=== PATIENT | female | born 1960 | race American Indian/Alaskan Native ===

== ENCOUNTER 2017-07-19 11:56 | Emergency (ER) | payer MEDICARE ==
[2017-07-19 12:10] VITALS: BP 126/69
[2017-07-19 12:46] LABS: Hematocrit 28.9 % (30.3-42.9); Hemoglobin 9.1 gm/dl (10.1-14.3); Mean Corpuscular HGB Conc 31 % (30-34); Mean Corpuscular Hemoglobin 28 pg (28-32); Mean Corpuscular Volume 89 fl (79-97); Platelet Count 149 K/mm3 (140-440); Red Blood Count 3.27 M/mm3 (3.65-5.03); Red Cell Distribution Width 15.1 % (13.2-15.2); White Blood Count 3.4 K/mm3 (4.5-11.0)
[2017-07-19 12:47] LABS: Calcium 8.9 mg/dL (8.4-10.2)
[2017-07-19 13:19] LABS: Bilirubin,Urine NEG (Negative); Blood,Urine NEG (Negative); Ketones,Urine NEG (Negative); Leukocyte Esterase,Urine NEG (Negative); Mucus,Urine FEW /HPF; Nitrite,Urine NEG (Negative); Protein,Urine <15 mg/dL mg/dL (Negative); Urobilinogen,Urine < 2.0 mg/dL (<2.0)
[2017-07-19 14:38] LABS: Basophils % (Manual) 0 % (0.0-1.8); Blastocytes % (Manual) 0 %; Eosinophils % (Manual) 0 % (0.0-4.3)
[2017-07-19 14:39] LABS: RBC Morphology Normal
[2017-07-19 14:40] LABS: Platelet Estimate Consistent w Auto
[2017-07-19 14:44] LABS: Diff Status Complete
== END 2017-07-19 16:14 | disposition left against medical advice (07) ==
LOC: ED 11:56
DX: R50.9 Fever, unspecified (principal); Z53.21 Procedure and treatment not carried out due to patient leaving prior to being seen by health care provider
CPT/HCPCS: 36415; 80048; 81001; 85007

== ENCOUNTER 2018-11-29 22:45 | Inpatient (IN) | payer MEDICARE ==
[2018-11-29] MEDS ORDERED: SOLU-Medrol IV ONE (22:59)
[2018-11-29] MEDS ORDERED: PROVENTIL IH ONE (22:59)
[2018-11-29] MEDS ORDERED: ATROVENT IH ONE (22:59)
[2018-11-29 23:51] LABS: Calcium 8.9 mg/dL (8.4-10.2)
[2018-11-30] MEDS ORDERED: ROCEPHIN/NS 2 GM/100 ML 2 GM/100 ML BAG IV ONE (00:04)
[2018-11-30] MEDS ORDERED: ZITHROMAX 500 MG in NACL 0.9% 250ML 250 ML IV ONE (00:04)
[2018-11-30] MEDS ORDERED: LASIX IV ONE (00:04)
[2018-11-30 00:27] LABS: Hematocrit 35.3 % (30.3-42.9); Hemoglobin 11.7 gm/dl (10.1-14.3); Mean Corpuscular HGB Conc 33 % (30-34); Mean Corpuscular Volume 98 fl (79-97); Red Blood Count 3.61 M/mm3 (3.65-5.03); Red Cell Distribution Width 14.5 % (13.2-15.2)
[2018-11-30 00:45] LABS: Platelet Count 78 K/mm3 (140-440)
--- NOTE | 2018-11-30 00:58 | XRay Report ---
PROCEDURE: XR CHEST 1V AP TECHNIQUE: Chest radiograph single view. HISTORY: Dyspnea COMPARISONS: 07/21/2016 . FINDINGS: Heart: The heart is enlarged. Mediastinum/Vessels: Normal. Lungs/Pleural space: There are bilateral perihilar infiltrates. There are small bilateral pleural ef fusions.. Bony thorax: No acute osseous abnormality. Life support devices: None. IMPRESSION: The heart is enlarged. There are bilateral perihilar infiltrates. There are small bilateral pleural effusions... This document is electronically signed by Alexey Santiago MD., November 30 2018 12:56:47 AM ET
--- NOTE | 2018-11-30 01:05 | Emergency Department Report ---
ED Shortness of Breath HPI - General Chief Complaint: Dyspnea/Respdistress Stated Complaint: CARRI Time Seen by Provider: 11/29/18 22:59 Source: patient, EMS Mode of arrival: Stretcher Limitations: No Limitations - History of Present Illness Initial Comments: Patient is a 58-year-old female who is presenting with some restorative distress. Patient states that she treated her cough and shortness of breath is progressively worsening for the last week to the pollen. Patient states that initially her sputum was clear however she did have some brown sputum today. Patient stated that tonight her respiratory distress worsened dramatically to the point where she could not breathe. O2 sat was in the mid 80s when she was picked up by EMS. Patient is denying any chest pain subjective fevers chills nausea vomiting. Patient has a past history of some renal insufficiency after renal transplant 6 years ago. Patient also states that she had surgery, valvular heart however she does not have much other details. Patient states she has hypertension but otherwise is generally in great health after her renal transplant. Patient's only medications currently that she is reported to me as his [id number] Mucinex and allergy medicines that she started taking earlier this week. - Related Data Home Medications Medication Instructions Recorded Confirmed Last Taken Darunavir [Prezista] 600 mg PO BID 12/16/14 12/16/14 Unknown Levothyroxine [Synthroid] 25 mcg PO QAM 12/16/14 12/16/14 Unknown Mycophenolate [Cellcept] 1,000 mg PO BID 12/16/14 12/16/14 Unknown Raltegravir Potassium [Isentress] 400 mg PO BID 12/16/14 12/16/14 Unknown Ritonavir [Norvir] 100 mg PO BID 12/16/14 12/16/14 Unknown amLODIPine [Norvasc] 5 mg PO DAILY 12/16/14 12/16/14 Unknown lamiVUDine [Epivir] 300 mg PO QDAY 12/16/14 12/16/14 Unknown oxyCODONE /ACETAMINOPHEN [Percocet 1 tab PO Q4HR PRN 12/16/14 12/16/14 Unknown 5/325 mg] Previous Rx's Medication Instructions Recorded Last Taken Type ALBUTEROL Inhaler (OR & NICU) 2 puff IH QID PRN #1 inhalation 12/17/14 Unknown Rx [ProAir HFA Inhaler] Fluticasone/Salmeterol [Advair 1 each IH BID #1 disk.w.dev 12/17/14 Unknown Rx Diskus 250-50 mcg] predniSONE [Prednisone] 20 mg PO DAILY 8 Days tablet 12/17/14 Unknown Rx Amoxicillin/K Clav Tab [Augmentin 1 tab PO BID #14 tablet 01/20/15 Unknown Rx 875MG TAB] methylPREDNISolone [Medrol Dose 1 dose PO DAILY #1 pack 01/20/15 Unknown Rx Nia] ALBUTEROL Inhaler (OR & NICU) 2 puff IH QID PRN #1 inhalation 11/19/15 Unknown Rx [ProAir HFA Inhaler] Azithromycin [Zithromax Z-NIA] 250 mg PO DAILY #6 tab 11/19/15 Unknown Rx guaiFENesin/CODEINE [Robitussin AC] 5 ml PO Q6H PRN #100 ml 11/19/15 Unknown Rx predniSONE [Deltasone] 20 mg PO BID #10 tab 11/19/15 Unknown Rx ALBUTEROL NEB's [Proventil 0.083% 2.5 mg IH TID PRN #25 dose 07/21/16 Unknown Rx NEBS] Azithromycin [Zithromax TAB] 500 mg PO QDAY #3 tablet 07/21/16 Unknown Rx Prednisone [predniSONE 10 mg 10 mg PO .TAPER #1 tab.ds.pk 07/21/16 Unknown Rx (6-Day Pack, 21 Tabs)] amLODIPine [Norvasc] 10 mg PO DAILY #30 tab 07/21/16 Unknown Rx Allergies Allergy/AdvReac Type Severity Reaction Status Date / Time levofloxacin [From Levaquin] AdvReac Swelling Verified 11/18/15 19:00 ED Review of Systems ROS: Stated complaint: CARRI Other details as noted in HPI Comment: All other systems reviewed and negative ED Past Medical Hx - Past Medical History Hx Hypertension: Yes (HTN) Hx Congestive Heart Failure: Yes Hx Diabetes: No Hx Renal Disease: Yes Hx Asthma: Yes Hx COPD: No Hx HIV: No Additional medical history: Kidney Transplant 2012 - Surgical History Hx Open Heart Surgery: Yes (HEART VALVE SURGERY 2010) Additional Surgical History: Kidney Transplant 2012. GRAFT RIGHT ARM. FISTULA LEFT ARM - Social History Smoking Status: Current Every Day Smoker Substance Use Type: None - Medications Home Medications: Home Medications Medication Instructions Recorded Confirmed Last Taken Type Darunavir [Prezista] 600 mg PO BID 12/16/14 12/16/14 Unknown History Levothyroxine [Synthroid] 25 mcg PO QAM 12/16/14 12/16/14 Unknown History Mycophenolate [Cellcept] 1,000 mg PO BID 12/16/14 12/16/14 Unknown History Raltegravir Potassium [Isentress] 400 mg PO BID 12/16/14 12/16/14 Unknown History Ritonavir [Norvir] 100 mg PO BID 12/16/14 12/16/14 Unknown History amLODIPine [Norvasc] 5 mg PO DAILY 12/16/14 12/16/14 Unknown History lamiVUDine [Epivir] 300 mg PO QDAY 12/16/14 12/16/14 Unknown History oxyCODONE /ACETAMINOPHEN [Percocet 1 tab PO Q4HR PRN 12/16/14 12/16/14 Unknown History 5/325 mg] ALBUTEROL Inhaler (OR & NICU) 2 puff IH QID PRN #1 inhalation 12/17/14 Unknown Rx [ProAir HFA Inhaler] Fluticasone/Salmeterol [Advair 1 each IH BID #1 disk.w.dev 12/17/14 Unknown Rx Diskus 250-50 mcg] predniSONE [Prednisone] 20 mg PO DAILY 8 Days tablet 12/17/14 Unknown Rx Amoxicillin/K Clav Tab [Augmentin 1 tab PO BID #14 tablet 01/20/15 Unknown Rx 875MG TAB] methylPREDNISolone [Medrol Dose 1 dose PO DAILY #1 pack 01/20/15 Unknown Rx Nia] ALBUTEROL Inhaler (OR & NICU) 2 puff IH QID PRN #1 inhalation 11/19/15 Unknown Rx [ProAir HFA Inhaler] Azithromycin [Zithromax Z-NIA] 250 mg PO DAILY #6 tab 11/19/15 Unknown Rx guaiFENesin/CODEINE [Robitussin AC] 5 ml PO Q6H PRN #100 ml 11/19/15 Unknown Rx predniSONE [Deltasone] 20 mg PO BID #10 tab 11/19/15 Unknown Rx ALBUTEROL NEB's [Proventil 0.083% 2.5 mg IH TID PRN #25 dose 07/21/16 Unknown Rx NEBS] Azithromycin [Zithromax TAB] 500 mg PO QDAY #3 tablet 07/21/16 Unknown Rx Prednisone [predniSONE 10 mg 10 mg PO .TAPER #1 tab.ds.pk 07/21/16 Unknown Rx (6-Day Pack, 21 Tabs)] amLODIPine [Norvasc] 10 mg PO DAILY #30 tab 07/21/16 Unknown Rx ED Physical Exam - General Limitations: No Limitations General appearance: alert, in distress - Head Head exam: Present: atraumatic, normocephalic - Eye Eye exam: Present: normal appearance, PERRL, EOMI - ENT ENT exam: Present: normal exam, mucous membranes moist - Neck Neck exam: Present: normal inspection - Respiratory Respiratory exam: Present: respiratory distress, wheezes, rales, rhonchi, other (tachypnea). Absent: normal lung sounds bilaterally - Cardiovascular Cardiovascular Exam: Present: regular rate, normal rhythm. Absent: systolic murmur, diastolic murmur, rubs, gallop - GI/Abdominal GI/Abdominal exam: Present: soft, normal bowel sounds. Absent: distended, tenderness, guarding, rebound, rigid - Extremities Exam Extremities exam: Present: normal inspection - Back Exam Back exam: Present: normal inspection - Neurological Exam Neurological exam: Present: alert, oriented X3 - Psychiatric Psychiatric exam: Present: normal affect, normal mood - Skin Skin exam: Present: warm, dry, intact, normal color. Absent: rash ED Course Vital Signs 11/29/18 11/29/18 11/29/18 22:54 23:00 23:15 Temperature 100.5 F H Pulse Rate 89 90 Pulse Rate [ Anterior Bilateral Throughout] Respiratory 23 30 H Rate Respiratory Rate [Anterior Bilateral Throughout] Blood Pressure 149/73 149/73 157/95 O2 Sat by Pulse 87 90 89 Oximetry 11/29/18 11/30/18 23:30 00:01 Temperature Pulse Rate 86 Pulse Rate [ 92 H Anterior Bilateral Throughout] Respiratory 28 H Rate Respiratory 18 Rate [Anterior Bilateral Throughout] Blood Pressure 146/82 O2 Sat by Pulse 90 Oximetry ED Medical Decision Making - Lab Data Result diagrams: 11/29/18 23:14 11/29/18 23:14 Lab Results 11/29/18 11/29/18 11/29/18 Range/Units 23:14 23:14 23:14 WBC 0.8 L* (4.5-11.0) K/mm3 RBC 3.61 L (3.65-5.03) M/mm3 Hgb 11.7 (10.1-14.3) gm/dl Hct 35.3 (30.3-42.9) % MCV 98 H (79-97) fl MCH 32 (28-32) pg MCHC 33 (30-34) % RDW 14.5 (13.2-15.2) % Plt Count 78 L (140-440) K/mm3 Lymph % (Auto) Curriculum Coordinator [place] % (Auto) Curriculum Coordinator Eos % (Auto) Curriculum Coordinator Baso % (Auto) Curriculum Coordinator Lymph # Curriculum Coordinator [place] # Curriculum Coordinator Eos # Curriculum Coordinator Baso # Curriculum Coordinator Seg Neutrophils % Curriculum Coordinator Seg Neutrophils # Curriculum Coordinator D-Dimer 6160.06 H (0-234) ng/mlDDU Sodium 133 L (137-145) mmol/L Potassium 3.5 L (3.6-5.0) mmol/L Chloride 98.4 (98-107) mmol/L Carbon Dioxide 22 (22-30) mmol/L Anion Gap 16 mmol/L BUN 21 H (7-17) mg/dL Creatinine 1.4 H (0.7-1.2) mg/dL Estimated GFR 47 ml/min BUN/Creatinine Ratio 15 % Glucose 144 H (65-100) mg/dL Calcium 8.9 (8.4-10.2) mg/dL Troponin T (0.00-0.029) ng/mL NT-Pro-B Natriuret Pep (0-900) pg/mL 11/29/18 11/29/18 Range/Units 23:14 23:14 WBC (4.5-11.0) K/mm3 RBC (3.65-5.03) M/mm3 Hgb (10.1-14.3) gm/dl Hct (30.3-42.9) % MCV (79-97) fl MCH (28-32) pg MCHC (30-34) % RDW (13.2-15.2) % Plt Count (140-440) K/mm3 Lymph % (Auto) [place] % (Auto) Eos % (Auto) Baso % (Auto) Lymph # [place] # Eos # Baso # Seg Neutrophils % Seg Neutrophils # D-Dimer (0-234) ng/mlDDU Sodium (137-145) mmol/L Potassium (3.6-5.0) mmol/L Chloride (98-107) mmol/L Carbon Dioxide (22-30) mmol/L Anion Gap mmol/L BUN (7-17) mg/dL Creatinine (0.7-1.2) mg/dL Estimated GFR ml/min BUN/Creatinine Ratio % Glucose (65-100) mg/dL Calcium (8.4-10.2) mg/dL Troponin T < 0.010 (0.00-0.029) ng/mL NT-Pro-B Natriuret Pep 5555 H (0-900) pg/mL - EKG Data -: EKG Interpreted by Me - EKG Data Interpretation: unchanged when compared t 11/30/18 01:05 EKG shows sinus rhythm rate of 87 with normal axis normal intervals. Patient with probable LVH. No ST segment elevations were seen. Time of interpretation is 2324 - Radiology Data Radiology results: image reviewed (patient with a borderline cardiomegaly with patchy bilateral infiltrates.) - Medical Decision Making Patient is a 58-year-old female who is presenting with respiratory distress. Patient received a small neb treatment in route and this was continued for another hour when she arrived. Patient's heart rate and tachypnea did improve while on the nebulizer treatment. Patient's chest x-ray is consistent with very large bilateral infiltrates that are patchy. Patient's BNP is elevated making or edema. Likely however the patient did have a low- grade temperature and leukopenia which also is supposed to an infectious process. Patient was given Lasix as well as placed on the sepsis protocol and g iven Rocephin and azithromycin. Fluids were held at this time secondary to the perez. Pulmonary edema. Again is unknown whether there is a superimposed pneumonia present as well. Patient will be taken for VQ scan to rule out PE as the patient's d-dimer was significantly elevated as well. Patient's renal function did not support CT scan. Patient's renal function is within normal limits for her. Patient has had a slight bump in her creatinine of the last several years and this is stable. Patient blood pressure remained within normal limits here in the emergency department. Patient will be admitted to the hospitalist service under Dr. Yap. A diagnosis of sepsis has not formally been made since no definitive infection has been identified at this time. The slight bump in the patient's temperature could be from a pneumonia however slight variations of patient's temperature could also be from pulmonary embolus. Critical Care Time: Yes (45) Critical care attestation.: If time is entered above; I have spent that time in minutes in the direct care of this critically ill patient, excluding procedure time. ED Disposition Clinical Impression: Hypoxia, Acute respiratory disease, CKD (chronic kidney disease) stage 3, GFR 30-59 ml/min, History of kidney transplant CHF (congestive heart failure) Qualifiers: Heart failure type: unspecified Heart failure chronicity: acute Qualified Code(s): I50.9 - Heart failure, unspecified Pneumonia Qualifiers: Pneumonia type: due to unspecified organism Laterality: unspecified laterality Lung location: unspecified part of lung Qualified Code(s): J18.9 - Pneumonia, unspecified organism Disposition: DC-09 OP ADMIT IP TO THIS HOSP Is pt being admited?: Yes Does the pt Need Aspirin: No Condition: Stable Instructions: Bacterial Pneumonia (ED)
[2018-11-30] MEDS ORDERED: TYLENOL PO PRN (01:50)
[2018-11-30] MEDS ORDERED: ZOFRAN IV PRN (01:50)
[2018-11-30] MEDS ORDERED: SODIUM CHLORIDE FLUSH SYRINGE 10 ML IV PRN (01:50)
--- NOTE | 2018-11-30 01:56 | History and Physical Report ---
History of Present Illness Date of examination: 11/30/18 History of present illness: This 58-year-old woman with a history of hypertension, chronic kidney disease, status post renal transplant, asthma comes emergency room complaining of shortness of breath that started yesterday. She states all week she wasn't feeling well, she thought her asthma and allergy was acting up. She complains of cough productive of brown phlegm, fever, no chills Review of systems Constitutional: no weight loss, chills, fever Ears, eyes, nose, mouth and throat: no nasal congestion, no nasal discharge, no sinus pressure, no vision change, no red eye. Neck: No neck pain or rigidity. Cardiovascular: no palpitations, chest pain Respiratory: + cough, shortness of breath Gastrointestinal: no hematochezia, abdominal pain Genitourinary : no frequency , no hematuria Musculoskeletal: no joint swelling or muscle ache Integumentary: no rash, no pruritis Neurological: no parathesias, no focal weakness Endocrine: no cold or heat intolerance, no polyuria or polydipsia Hematologic/Lymphatic: no easy bruising, no easy bleeding, no gland swelling Allergic/Immunologic: no urticaria, no angioedema. PAST MEDICAL HISTORY:hypertension, chronic kidney disease, status post renal transplant, asthma PAST SURGICAL HISTORY: Renal transplant SOCIAL HISTORY: Denies alcohol, drugs, smokes 5 cigarettes a day FAMILY HISTORY: Hypertension Medications and Allergies Allergies Allergy/AdvReac Type Severity Reaction Status Date / Time levofloxacin [From Levaquin] AdvReac Swelling Verified 11/18/15 19:00 Home Medications Medication Instructions Recorded Confirmed Last Taken Type Darunavir [Prezista] 600 mg PO BID 12/16/14 11/30/18 1 Day Ago History ~11/29/18 Levothyroxine [Synthroid] 25 mcg PO QAM 12/16/14 11/30/18 1 Day Ago History ~11/29/18 Mycophenolate [Cellcept] 1,000 mg PO BID 12/16/14 11/30/18 1 Day Ago History ~11/29/18 Raltegravir Potassium [Isentress] 400 mg PO BID 12/16/14 11/30/18 1 Day Ago History ~11/29/18 Ritonavir [Norvir] 100 mg PO BID 12/16/14 11/30/18 1 Day Ago History ~11/29/18 amLODIPine [Norvasc] 5 mg PO DAILY 12/16/14 11/30/18 Unknown History lamiVUDine [Epivir] 300 mg PO QDAY 12/16/14 11/30/18 2 Days Ago History ~11/28/18 oxyCODONE /ACETAMINOPHEN [Percocet 1 tab PO Q4HR PRN 12/16/14 11/30/18 Unknown History 5/325 mg] ALBUTEROL Inhaler (OR & NICU) 2 puff IH QID PRN #1 inhalation 12/17/14 11/30/18 Unknown Rx [ProAir HFA Inhaler] Fluticasone/Salmeterol [Advair 1 each IH BID #1 disk.w.dev 12/17/14 11/30/18 1 Day Ago Rx Diskus 250-50 mcg] ~11/29/18 predniSONE [Prednisone] 20 mg PO DAILY 8 Days tablet 12/17/14 11/30/18 Unknown Rx Amoxicillin/K Clav Tab [Augmentin 1 tab PO BID #14 tablet 01/20/15 11/30/18 Unknown Rx 875MG TAB] methylPREDNISolone [Medrol Dose 1 dose PO DAILY #1 pack 01/20/15 11/30/18 Unknown Rx Nia] ALBUTEROL Inhaler (OR & NICU) 2 puff IH QID PRN #1 inhalation 11/19/15 11/30/18 Unknown Rx [ProAir HFA Inhaler] Azithromycin [Zithromax Z-NIA] 250 mg PO DAILY #6 tab 11/19/15 11/30/18 Unknown Rx guaiFENesin/CODEINE [Robitussin AC] 5 ml PO Q6H PRN #100 ml 11/19/15 11/30/18 Unknown Rx predniSONE [Deltasone] 20 mg PO BID #10 tab 11/19/15 11/30/18 Unknown Rx ALBUTEROL NEB's [Proventil 0.083% 2.5 mg IH TID PRN #25 dose 07/21/16 11/30/18 Unknown Rx NEBS] Azithromycin [Zithromax TAB] 500 mg PO QDAY #3 tablet 07/21/16 11/30/18 Unknown Rx Prednisone [predniSONE 10 mg 10 mg PO .TAPER #1 tab.ds.pk 07/21/16 11/30/18 Unknown Rx (6-Day Pack, 21 Tabs)] amLODIPine [Norvasc] 10 mg PO DAILY #30 tab 07/21/16 11/30/18 1 Day Ago Rx ~11/29/18 Tacrolimus [Prograf] 0.5 mg PO BID 11/30/18 11/30/18 1 Day Ago History ~11/29/18 Tacrolimus [Prograf] 0.5 mg PO Q12H 11/30/18 11/30/18 Unknown History Active Meds: Active Medications Acetaminophen (Tylenol) 650 mg PO Q4H PRN PRN Reason: Pain MILD(1-3)/Fever >100.5/MACHUCA Albuterol/Ipratropium (Duoneb *Not For Prn Use*) 1 ampul IH Q6HRT RASHEEDA Vancomycin HCl (Vancomycin/Ns 1 Gm/250 Ml) 1 gm in 250 mls @ 167.007 mls/hr IV ONCE ONE; Protocol Stop: 11/30/18 03:17 Ondansetron HCl (Zofran) 4 mg IV Q8H PRN PRN Reason: Nausea And Vomiting Sodium Chloride (Sodium Chloride Flush Syringe 10 Ml) 10 ml IV BID RASHEEDA Sodium Chloride (Sodium Chloride Flush Syringe 10 Ml) 10 ml IV PRN PRN PRN Reason: LINE FLUSH Exam - Physical Exam Narrative exam: General Apperance: The patient lying in bed, mild respiratory distress HEENT: Normocephalic, atraumatic. Pupils equally round and reactive to light, EOMI, no sclericterus or JVD or thyromegaly or nodule. , no carotid bruit, mucous membranes moist, no exudate or erythema Heart: S1-S2, regular is rhythm Lungs: Crackles bilaterally, breathing comfortable Abdomen: Positive bowel sounds, soft, nontender, nondistended, no organomegaly Extremities: No edema cyanosis clubbing Skin: no rash, nodule, warm and dry Neuro: cranial nerves 2-12 intact, speech is fluent, motor/sensory intact - Constitutional Vitals: Temp Pulse Resp BP Pulse Ox 100.5 F H 96 H 16 140/81 90 11/29/18 23:00 11/30/18 01:06 11/30/18 01:06 11/30/18 01:00 11/30/18 01:00 Results - Labs CBC & Chem 7: 12/02/18 06:01 12/02/18 06:01 Labs: Abnormal lab results 11/29/18 11/29/18 11/29/18 Range/Units 23:14 23:14 23:14 WBC 0.8 L* (4.5-11.0) K/mm3 RBC 3.61 L (3.65-5.03) M/mm3 MCV 98 H (79-97) fl Plt Count 78 L (140-440) K/mm3 D-Dimer 6160.06 H (0-234) ng/mlDDU Sodium 133 L (137-145) mmol/L Potassium 3.5 L (3.6-5.0) mmol/L BUN 21 H (7-17) mg/dL Creatinine 1.4 H (0.7-1.2) mg/dL Glucose 144 H (65-100) mg/dL Lactic Acid (0.7-2.0) mmol/L NT-Pro-B Natriuret Pep (0-900) pg/mL 11/29/18 11/30/18 Range/Units 23:14 01:08 WBC (4.5-11.0) K/mm3 RBC (3.65-5.03) M/mm3 MCV (79-97) fl Plt Count (140-440) K/mm3 D-Dimer (0-234) ng/mlDDU Sodium (137-145) mmol/L Potassium (3.6-5.0) mmol/L BUN (7-17) mg/dL Creatinine (0.7-1.2) mg/dL Glucose (65-100) mg/dL Lactic Acid 0.60 L (0.7-2.0) mmol/L NT-Pro-B Natriuret Pep 5555 H (0-900) pg/mL - Imaging and Cardiology Chest x-ray: report reviewed Assessment and Plan Assessment Acute respiratory failure, hypoxia Multifocal pneumonia Leukopenia, thrombocytopenia Hypertension Chronic kidney disease, status post renal transplant Asthma Plan Admit to medicine Start Zosyn, given a dose of Vanco,obatain abg, start BiPAP start steroids, nebulizer treatments VQ scan is pending, consult pulmonary DVT prophylaxis Follow-up medication reconciliation
[2018-11-30] MEDS ORDERED: VANCOMYCIN/NS 1 GM/250 ML 1 GM/250 ML BAG IV ONE (02:15)
[2018-11-30] MEDS: DUONEB *Not for PRN Use IH SCH ×5 (02:15→21:50)
[2018-11-30 02:32] LABS: Anisocytosis 1+; Basophils % (Manual) 0 % (0.0-1.8); Platelet Estimate Consistent w Auto; Total Cells Counted 50
--- NOTE | 2018-11-30 03:18 | Nuclear Medicine Report ---
PROCEDURE: NM LUNG SCAN PERF/VENT TECHNIQUE: Perfusion images obtained with 3.86 mCi of technetium MAA. Ventilation images obtained with 17.32 mCi of seen on 133. HISTORY: resp distress with elevated ddimer COMPARISONS: Correlation is made with the prior plain film radiograph from November 29 FINDINGS: There is no evidence of segmental or subsegmental mismatch perfusion defects. IMPRESSION: Low probability for pulmonary emboli.. This document is electronically signed by Bc Campos MD., November 30 2018 03:16:34 AM ET
[2018-11-30] MEDS: ZOSYN/NS 3.375GM/50ML 3.375 GM/50 ML BAG IV SCH ×2 (04:58→16:33)
[2018-11-30] MEDS: SOLU-Medrol IV SCH ×3 (06:39→22:14)
[2018-11-30 06:48] LABS: Bacteria,Urine 2+ /HPF (Negative); Bilirubin,Urine NEG (Negative); Blood,Urine NEG (Negative); Color,Urine Straw (Yellow); Mucus,Urine FEW /HPF; Protein,Urine <15 mg/dL mg/dL (Negative); Urobilinogen,Urine < 2.0 mg/dL (<2.0); WBC,Urine < 1.0 /HPF (0.0-6.0)
[2018-11-30] MEDS: SODIUM CHLORIDE FLUSH SYRINGE 10 ML IV SCH ×2 (09:41→22:14)
[2018-11-30] MEDS ORDERED: PROVENTIL IH PRN (11:38)
[2018-11-30] MEDS ORDERED: LAMIVUDINE 300 MG PO SCH (11:45)
[2018-11-30] MEDS ORDERED: PREZISTA PO SCH (12:00)
--- NOTE | 2018-11-30 13:21 | Consultation ---
History of Present Illness - Reason for Consult Consult date: 11/30/18 PNA Requesting physician: TAMY DOYLE - History of Present Illness This patient is a 58-year old woman with a history of hypertension, chronic kidney disease status post renal transplant in 2012, and asthma that presented in the ED on 11/30/18 with complaints of SOB and productive cough of brown phelgm and subjective fever since yesterday. On admission WBC 0.8, Creatinine 1.4, Temperature 100.5, HR 95 , BP 149/73. U/A was not consistent with a UTI. Chest xray shows bilateral perihilar infiltrates and small bilateral pleural effusions.. Blood cultures were drawn and are pending. Patient states that she was diagnosed with HIV 20 years ago[address] Dr[address] Hutchison in [place] and is currently taking Triumeq and states her VL is undetectable. She smokes tobacco but denies alcohol or illegal drug use. Review of Systems: General: +fever chills, no nightsweats, unintentional weight change, or change in appetite Cutaneous: no rash, pruritus Head: no headaches or injury Eyes: no changes in vision, eye pain, double vision Ears: no ear pain, ear discharge, ringing or hearing loss Nose: no nose bleeding, stuffiness Mouth & throat: no bleeding gums, no horseness, no dental problems, or swollen glands Neck: no pain, node enlargement/lumps, tyroid enlargement or tenderness Respiratory: + cough + sputum, denies pleuritic chest pain Cardiovascular: no chest pain, leg edema, cyanosis, CHOWDARY, orthopnea Musculoskeletal: no decreased joint motion, bone or joint pain, joint swelling, + generalized weakness Gastrointestinal: no nausea, vomiting, hematemesis, diarrhea, constipation, melena, Genitourinary/Reproductive: no frequent urination, no dysuria, hematuria, incontinence Neurogical: no seizures, no headaches, no weakness, no paresthesias, no loss of speech or vision Psychiatric: stable mood; no excessive anxiety, sadness or moodiness Medications and Allergies Allergies Allergy/AdvReac Type Severity Reaction Status Date / Time levofloxacin [From Levaquin] AdvReac Swelling Verified 11/18/15 19:00 Home Medications Medication Instructions Recorded Confirmed Last Taken Type Darunavir [Prezista] 600 mg PO BID 12/16/14 11/30/18 1 Day Ago History ~11/29/18 Levothyroxine [Synthroid] 25 mcg PO QAM 12/16/14 11/30/18 1 Day Ago History ~11/29/18 Mycophenolate [Cellcept] 1,000 mg PO BID 12/16/14 11/30/18 1 Day Ago History ~11/29/18 Raltegravir Potassium [Isentress] 400 mg PO BID 12/16/14 11/30/18 1 Day Ago History ~11/29/18 Ritonavir [Norvir] 100 mg PO BID 12/16/14 11/30/18 1 Day Ago History ~11/29/18 amLODIPine [Norvasc] 5 mg PO DAILY 12/16/14 11/30/18 Unknown History lamiVUDine [Epivir] 300 mg PO QDAY 12/16/14 11/30/18 2 Days Ago History ~11/28/18 oxyCODONE /ACETAMINOPHEN [Percocet 1 tab PO Q4HR PRN 12/16/14 11/30/18 Unknown History 5/325 mg] ALBUTEROL Inhaler (OR & NICU) 2 puff IH QID PRN #1 inhalation 12/17/14 11/30/18 Unknown Rx [ProAir HFA Inhaler] Fluticasone/Salmeterol [Advair 1 each IH BID #1 disk.w.dev 12/17/14 11/30/18 1 Day Ago Rx Diskus 250-50 mcg] ~11/29/18 predniSONE [Prednisone] 20 mg PO DAILY 8 Days tablet 12/17/14 11/30/18 Unknown Rx Amoxicillin/K Clav Tab [Augmentin 1 tab PO BID #14 tablet 01/20/15 11/30/18 Unknown Rx 875MG TAB] methylPREDNISolone [Medrol Dose 1 dose PO DAILY #1 pack 01/20/15 11/30/18 Unknown Rx Ubaldo] ALBUTEROL Inhaler (OR & NICU) 2 puff IH QID PRN #1 inhalation 11/19/15 11/30/18 Unknown Rx [ProAir HFA Inhaler] Azithromycin [Zithromax Z-UBALDO] 250 mg PO DAILY #6 tab 11/19/15 11/30/18 Unknown Rx guaiFENesin/CODEINE [Robitussin AC] 5 ml PO Q6H PRN #100 ml 11/19/15 11/30/18 Unknown Rx predniSONE [Deltasone] 20 mg PO BID #10 tab 11/19/15 11/30/18 Unknown Rx ALBUTEROL NEB's [Proventil 0.083% 2.5 mg IH TID PRN #25 dose 07/21/16 11/30/18 Unknown Rx NEBS] Azithromycin [Zithromax TAB] 500 mg PO QDAY #3 tablet 07/21/16 11/30/18 Unknown Rx Prednisone [predniSONE 10 mg 10 mg PO .TAPER #1 tab.ds.pk 07/21/16 11/30/18 Unknown Rx (6-Day Pack, 21 Tabs)] amLODIPine [Norvasc] 10 mg PO DAILY #30 tab 07/21/16 11/30/18 1 Day Ago Rx ~11/29/18 Active Meds: Active Medications Acetaminophen (Tylenol) 650 mg PO Q4H PRN PRN Reason: Pain MILD(1-3)/Fever >100.5/MACHUCA Albuterol (Proventil) 2.5 mg IH Q4HRT PRN PRN Reason: Shortness Of Breath Albuterol/Ipratropium (Duoneb *Not For Prn Use*) 1 ampul IH Q6HRT [facility] Last Admin: 11/30/18 08:24 Dose: Not Given Documented by: Arformoterol Tartrate (Brovana Nebu) 15 mcg IH Q12HRT [facility] Budesonide (Pulmicort) 0.5 mg IH Q12HRT [facility] Piperacillin Sod/Tazobactam Sod (Zosyn/Ns 3.375gm/50ml) 3.375 gm in 50 mls @ 100 mls/hr IV Q8H [facility] Last Infusion: 11/30/18 05:28 Dose: Infused Documented by: Lamivudine (Epivir) 300 mg PO QDAY RASHE[facility] Levothyroxine Sodium (Synthroid) 25 mcg PO 0600 [facility] Methylprednisolone Sodium Succinate (Solu-Medrol) 60 mg IV Q8HR [facility] Last Admin: 11/30/18 06:39 Dose: 60 mg Documented by: Mycophenolate Mofetil (Cellcept) 1,000 mg PO BID [facility] Ondansetron HCl (Zofran) 4 mg IV Q8H PRN PRN Reason: Nausea And Vomiting Pneumococcal Polyvalent Vaccine (Pneumovax 23) 0.5 ml IM .ONCE ONE Stop: 04/09/19 12:01 Raltegravir (Isentress) 400 mg PO BID [facility] Ritonavir (Norvir) 100 mg PO BID RAS[facility] Sodium Chloride (Sodium Chloride Flush Syringe 10 Ml) 10 ml IV BID [facility] Last Admin: 11/30/18 09:41 Dose: 10 ml Documented by: Sodium Chloride (Sodium Chloride Flush Syringe 10 Ml) 10 ml IV PRN PRN PRN Reason: LINE FLUSH Physical Examination - Physical Exam Narrative exam: Constitutional: Alert, cooperative. No acute distress Head, Ears, Nose: Normocephalic, atraumatic. External ears, nose normal Eyes: Conjunctivae/corneas clear. No icterus. No ptosis. Neck: Supple, no meningeal signs Oral: dentition fair, no thrush Cardiovascular: S1, S2 normal. Respiratory: Good air entry, Bilateral Rhonci, + productive cough, clear sputum GI: Soft, non-tender; bowel sounds normal. No peritoneal signs Musculoskeletal: No pedal edema, no cyanosis. Skin: No rash or abscess. Hem/Lymphatic: No palpable cervical or supraclavicular nodes. No lymphangitis Psych: Mood ok. Affect normal Neurological: Awake, alert, oriented. - Constitutional Vitals: Vital Signs Temp Pulse Resp BP Pulse Ox 98.4 F 83 20 133/77 100 11/30/18 10:54 11/30/18 10:51 11/30/18 10:51 11/30/18 10:51 11/30/18 10:51 Temperature -Last 24 Hours Temperature 98.4 F Temperature 98.1 F Temperature 100.5 F Results - Labs CBC & Chem 7: 11/29/18 23:14 11/29/18 23:14 Labs: Abnormal lab results 11/29/18 11/29/18 11/29/18 Range/Units 23:14 23:14 23:14 WBC 0.8 L* (4.5-11.0) K/mm3 RBC 3.61 L (3.65-5.03) M/mm3 MCV 98 H (79-97) fl Plt Count 78 L (140-440) K/mm3 Seg Neuts % (Manual) 22.0 L (40.0-70.0) % Lymphocytes % (Manual) 68.0 H (13.4-35.0) % Monocytes % (Manual) 8.0 H (0.0-7.3) % Seg Neutrophils # Man 0.2 L (1.8-7.7) K/mm3 Lymphocytes # (Manual) 0.5 L (1.2-5.4) K/mm3 D-Dimer 6160.06 H (0-234) ng/mlDDU POC ABG pH (7.35-7.45) POC ABG pCO2 (35-45) Sodium 133 L (137-145) mmol/L Potassium 3.5 L (3.6-5.0) mmol/L BUN 21 H (7-17) mg/dL Creatinine 1.4 H (0.7-1.2) mg/dL Glucose 144 H (65-100) mg/dL Lactic Acid (0.7-2.0) mmol/L NT-Pro-B Natriuret Pep (0-900) pg/mL 11/29/18 11/30/18 11/30/18 Range/Units 23:14 01:08 04:37 WBC (4.5-11.0) K/mm3 RBC (3.65-5.03) M/mm3 MCV (79-97) fl Plt Count (140-440) K/mm3 Seg Neuts % (Manual) (40.0-70.0) % Lymphocytes % (Manual) (13.4-35.0) % Monocytes % (Manual) (0.0-7.3) % Seg Neutrophils # Man (1.8-7.7) K/mm3 Lymphocytes # (Manual) (1.2-5.4) K/mm3 D-Dimer (0-234) ng/mlDDU POC ABG pH (7.35-7.45) POC ABG pCO2 (35-45) Sodium (137-145) mmol/L Potassium (3.6-5.0) mmol/L BUN (7-17) mg/dL Creatinine (0.7-1.2) mg/dL Glucose (65-100) mg/dL Lactic Acid 0.60 L 0.60 L (0.7-2.0) mmol/L NT-Pro-B Natriuret Pep 5555 H (0-900) pg/mL 11/30/18 Range/Units 04:53 WBC (4.5-11.0) K/mm3 RBC (3.65-5.03) M/mm3 MCV (79-97) fl Plt Count (140-440) K/mm3 Seg Neuts % (Manual) (40.0-70.0) % Lymphocytes % (Manual) (13.4-35.0) % Monocytes % (Manual) (0.0-7.3) % Seg Neutrophils # Man (1.8-7.7) K/mm3 Lymphocytes # (Manual) (1.2-5.4) K/mm3 D-Dimer (0-234) ng/mlDDU POC ABG pH 7.307 L (7.35-7.45) POC ABG pCO2 45.9 H (35-45) Sodium (137-145) mmol/L Potassium (3.6-5.0) mmol/L BUN (7-17) mg/dL Creatinine (0.7-1.2) mg/dL Glucose (65-100) mg/dL Lactic Acid (0.7-2.0) mmol/L NT-Pro-B Natriuret Pep (0-900) pg/mL - Imaging and Cardiology Chest x-ray: report reviewed (There are bilateral perihilar infiltrates. There are small bilateral pleural effusions... ), other (Pulmonary Perfusion Imaging: Low probability for pulmonary emboli) Assessment and Plan Cultures: 11/30/2018 Blood: in progress A/P: 58-year oled woman with a history of hypertenison, chronic kidney disease status post renal transplant in 2012.and asthma that presented in the ED on 11/30/18 with complaints of SOB and productive cough of brown phelgm and subjective fever since yesterday. Now admitted with: 1. Multifocal Pneumonia: Chest xray shows bilateral perihilar infiltrates and small bilateral plueral effusions. Pulmonary perfusion imaging shows low probability for pulmonary emboli. Currently being treated with Azithromycin and Zosyn. 2. Acute respiratory failure with hypoxia: likely due to multifocal pneumonia. 3. HIV: diagnosed 20 years ago. States VL is undetectable, Currently taking Triumeg at home. Non formulary. Started Dolutegravir and Abacavir. 3. Leukopenia: unclear etiology. ? cellcept? 4. CKD: s/p Renal Transplant: Renal transplant in 2012. 5. Thrombocytopenia: 6. [employer] Abuse: counseled on smoking cessation Plan: -f/u blood cultures -Discontinue Zosyn -continue Azithromycin 500mg IV every 24 hours -Start Ceftriaxone 2 gm IV every 24 hours -order sputum culture -CT Chest w/o contrast ordered -order CMV DNA, QN PCR, Legionella Antigen, EIA , Serum Aspergillus, Serum 1, 3 Beta d glucan Steptococcus Pneumoniae urinary antigen,HIV RNA, Lymphocyte subset panel 2 Start Dolutegravir and Abacavir - Triumeg is non formulary d/w Dr. Chloé Lan, [facility] M: [phone] O:[phone]
[2018-11-30] MEDS ORDERED: NORVIR PO SCH (14:00)
[2018-11-30] MEDS ORDERED: ISENTRESS PO SCH (14:00)
[2018-11-30] MEDS ORDERED: EPIVIR PO SCH ×2 (14:00→16:00)
[2018-11-30] MEDS ORDERED: ZIAGEN PO SCH (16:00)
--- NOTE | 2018-11-30 16:40 | Cat Scan Report ---
PROCEDURE: CT CHEST WO CON TECHNIQUE: Axial images obtained chest without intravenous contrast. Sagittal and coronal reformatte d images. HISTORY: pneumonia, HIV and renal transplant COMPARISONS: Chest x-ray November 29, 2018 FINDINGS: Atherosclerotic calcification of the aorta. No aneurysm. Marked dilatation of the pulmonary trunk and main pulmonary arteries. Pulmonary trunk measures 4.8 cm. Cardiomegaly. Status post median sternotomy. Status post CABG. No axillary or mediastinal adenopathy Granulomatous calcifications are noted right hilum Lungs demonstrate hyperlucent areas compatible with changes of centrilobular emphysema Upper lobes demonstrate a combination of groundglass opacity and consolidation. Consolidation is most prominent in the perihilar regions left greater than right. There is mild septal thickening. Both lo wer lobes demonstrate groundglass opacity. There is groundglass opacity right middle lobe. There is c onsolidation left lower lobe as well as lingula. No pneumothorax No sizable effusion Upper abdomen demonstrates no free air. No free fluid. Focal calcification liver. Atrophy of jackson k idneys. Opacity in the gallbladder likely representing cholelithiasis. No acute bony abnormality IMPRESSION: Bilateral areas of groundglass opacity and consolidation. Differential includes edema and/or pneumoni a. Atypical pneumonia including pneumocystis not excluded. Changes of centrilobular emphysema Cardiomegaly Marked enlargement of the pulmonary arteries which can be seen in the setting of pulmonary arterial h ypertension Old granulomatous disease Atrophy of the jackson kidneys Additional nonemergent findings as above. This document is electronically signed by Bola Mercado MD., November 30 2018 04:38:46 PM ET
[2018-11-30] MEDS: CELLCEPT PO SCH ×2 (17:10→22:14)
--- NOTE | 2018-11-30 17:10 | Consultation ---
History of Present Illness Consult date: 11/30/18 Reason for consult: dyspnea, asthma, COPD History of present illness: PULMONARY AND CRITICAL CARE CONSULTATION THANK YOU FOR ASKING US TO PARTICIPATE IN THE CARE OF THIS PATIENT. This 71-year-old woman with a history of hypertension, chronic kidney disease, status post renal transplant, asthma comes emergency room complaining of shortness of breath that started yesterday. She states all week she wasn't feeling well, she thought her asthma and allergy was acting up. She complains of cough productive of brown phlegm, fever, no chills Patient has history of smoking 1 pack x 3 days for 15 years.Patient also has history of asthma. Patient allergic to levofloxacin. Unable to obtain furthur history. Patient presently on 2 litres O2. O2 saturation 94%. Medications and Allergies Allergies Allergy/AdvReac Type Severity Reaction Status Date / Time levofloxacin [From Levaquin] AdvReac Swelling Verified 11/18/15 19:00 Home Medications Medication Instructions Recorded Confirmed Last Taken Type Darunavir [Prezista] 600 mg PO BID 12/16/14 11/30/18 1 Day Ago History ~11/29/18 Levothyroxine [Synthroid] 25 mcg PO QAM 12/16/14 11/30/18 1 Day Ago History ~11/29/18 Mycophenolate [Cellcept] 1,000 mg PO BID 12/16/14 11/30/18 1 Day Ago History ~11/29/18 Raltegravir Potassium [Isentress] 400 mg PO BID 12/16/14 11/30/18 1 Day Ago History ~11/29/18 Ritonavir [Norvir] 100 mg PO BID 12/16/14 11/30/18 1 Day Ago History ~11/29/18 amLODIPine [Norvasc] 5 mg PO DAILY 12/16/14 11/30/18 Unknown History lamiVUDine [Epivir] 300 mg PO QDAY 12/16/14 11/30/18 2 Days Ago History ~11/28/18 oxyCODONE /ACETAMINOPHEN [Percocet 1 tab PO Q4HR PRN 12/16/14 11/30/18 Unknown History 5/325 mg] ALBUTEROL Inhaler (OR & NICU) 2 puff IH QID PRN #1 inhalation 12/17/14 11/30/18 Unknown Rx [ProAir HFA Inhaler] Fluticasone/Salmeterol [Advair 1 each IH BID #1 disk.w.dev 12/17/14 11/30/18 1 Day Ago Rx Diskus 250-50 mcg] ~11/29/18 predniSONE [Prednisone] 20 mg PO DAILY 8 Days tablet 12/17/14 11/30/18 Unknown Rx Amoxicillin/K Clav Tab [Augmentin 1 tab PO BID #14 tablet 01/20/15 11/30/18 Unknown Rx 875MG TAB] methylPREDNISolone [Medrol Dose 1 dose PO DAILY #1 pack 01/20/15 11/30/18 Unknown Rx Nia] ALBUTEROL Inhaler (OR & NICU) 2 puff IH QID PRN #1 inhalation 11/19/15 11/30/18 Unknown Rx [ProAir HFA Inhaler] Azithromycin [Zithromax Z-NIA] 250 mg PO DAILY #6 tab 11/19/15 11/30/18 Unknown Rx guaiFENesin/CODEINE [Robitussin AC] 5 ml PO Q6H PRN #100 ml 11/19/15 11/30/18 Unknown Rx predniSONE [Deltasone] 20 mg PO BID #10 tab 11/19/15 11/30/18 Unknown Rx ALBUTEROL NEB's [Proventil 0.083% 2.5 mg IH TID PRN #25 dose 07/21/16 11/30/18 Unknown Rx NEBS] Azithromycin [Zithromax TAB] 500 mg PO QDAY #3 tablet 07/21/16 11/30/18 Unknown Rx Prednisone [predniSONE 10 mg 10 mg PO .TAPER #1 tab.ds.pk 07/21/16 11/30/18 Unknown Rx (6-Day Pack, 21 Tabs)] amLODIPine [Norvasc] 10 mg PO DAILY #30 tab 07/21/16 11/30/18 1 Day Ago Rx ~11/29/18 Tacrolimus [Prograf] 0.5 mg PO BID 11/30/18 11/30/18 1 Day Ago History ~11/29/18 Tacrolimus [Prograf] 0.5 mg PO Q12H 11/30/18 11/30/18 Unknown History Active Meds: Active Medications Abacavir Sulfate (Ziagen) 600 mg PO DAILY [facility]HE[facility] Acetaminophen (Tylenol) 650 mg PO Q4H PRN PRN Reason: Pain MILD(1-3)/Fever >100.5/MACHUCA Albuterol (Proventil) 2.5 mg IH Q4HRT PRN PRN Reason: Shortness Of Breath Albuterol/Ipratropium (Duoneb *Not For Prn Use*) 1 ampul IH Q6HRT [facility] Last Admin: 11/30/18 08:24 Dose: Not Given Documented by: Arformoterol Tartrate (Brovana Nebu) 15 mcg IH Q12HRT [facility] Budesonide (Pulmicort) 0.5 mg IH Q12HRT [facility] Ceftriaxone Sodium (Rocephin/Ns 2 Gm/100 Ml) 2 gm in 100 mls @ 200 mls/hr IV Q24H [facility]; Protocol Azithromycin 500 mg/ Sodium (Chloride) 250 mls @ 250 mls/hr IV Q24H [facility] Lamivudine (Epivir) 300 mg PO DAILY [facility] Levothyroxine Sodium (Synthroid) 25 mcg PO 0600 [facility] Methylprednisolone Sodium Succinate (Solu-Medrol) 60 mg IV Q8HR [facility] Last Admin: 11/30/18 06:39 Dose: 60 mg Documented by: Mycophenolate Mofetil (Cellcept) 1,000 mg PO BID [facility] Ondansetron HCl (Zofran) 4 mg IV Q8H PRN PRN Reason: Nausea And Vomiting Pneumococcal Polyvalent Vaccine (Pneumovax 23) 0.5 ml IM .ONCE ONE Stop: 12/02/18 12:01 Sodium Chloride (Sodium Chloride Flush Syringe 10 Ml) 10 ml IV BID [facility] Last Admin: 11/30/18 09:41 Dose: 10 ml Documented by: Sodium Chloride (Sodium Chloride Flush Syringe 10 Ml) 10 ml IV PRN PRN PRN Reason: LINE FLUSH Review of Systems All systems: negative Physical Examination Vital signs: Vital Signs BP Pulse Ox 149/73 87 11/29/18 22:54 11/29/18 22:54 General appearance: no acute distress, alert Eyes: non-icteric ENT: oropharynx moist Neck: supple, no JVD Ascultation: Bilateral: diminished breath sounds, other (Prolonged expiratory phase.) Cardiovascular: regular rate and rhythm Gastrointestinal: normoactive bowel sounds, soft, non-tender Integumentary: normal Extremities: no cyanosis, no edema Musculoskeletal: no deformities non-focal exam, pupils equal and round, CN II-XII normal anxious Results - Laboratory Findings CBC and BMP: 12/01/18 05:26 12/01/18 05:26 ABG POC ABG pH 7.307 (7.35-7.45) L 11/30/18 04:53 POC ABG pCO2 45.9 (35-45) H 11/30/18 04:53 POC ABG pO2 82 (80-105) 11/30/18 04:53 POC ABG HCO3 22.9 (22-26 mml/L) 11/30/18 04:53 POC ABG Total CO2 24 (23-27mmol/L) 11/30/18 04:53 POC ABG O2 Sat 95 11/30/18 04:53 PT/INR, D-dimer D-Dimer 6160.06 ng/mlDDU (0-234) H 11/29/18 23:14 Abnormal lab findings: Abnormal Labs 11/29/18 11/29/18 11/29/18 23:14 23:14 23:14 WBC 0.8 L* RBC 3.61 L MCV 98 H Plt Count 78 L Seg Neuts % (Manual) 22.0 L Lymphocytes % (Manual) 68.0 H Monocytes % (Manual) 8.0 H Seg Neutrophils # Man 0.2 L Lymphocytes # (Manual) 0.5 L D-Dimer 6160.06 H POC ABG pH POC ABG pCO2 Sodium 133 L Potassium 3.5 L BUN 21 H Creatinine 1.4 H Glucose 144 H Lactic Acid NT-Pro-B Natriuret Pep 11/29/18 11/30/18 11/30/18 23:14 01:08 04:37 WBC RBC MCV Plt Count Seg Neuts % (Manual) Lymphocytes % (Manual) Monocytes % (Manual) Seg Neutrophils # Man Lymphocytes # (Manual) D-Dimer POC ABG pH POC ABG pCO2 Sodium Potassium BUN Creatinine Glucose Lactic Acid 0.60 L 0.60 L NT-Pro-B Natriuret Pep 5555 H 11/30/18 04:53 WBC RBC MCV Plt Count Seg Neuts % (Manual) Lymphocytes % (Manual) Monocytes % (Manual) Seg Neutrophils # Man Lymphocytes # (Manual) D-Dimer POC ABG pH 7.307 L POC ABG pCO2 45.9 H Sodium Potassium BUN Creatinine Glucose Lactic Acid NT-Pro-B Natriuret Pep - Diagnostic Findings Chest x-ray: report reviewed (CARDIOMEGALY, pERIHILAR INFILTRATES AND SMALL PLEURAL EFFUSIONS.), image reviewed CT scan - chest: report reviewed, image reviewed Additional studies: CT OF CHEST DONE ON 11/30/18 IMPRESSION: Bilateral areas of groundglass opacity and consolidation. Differential includes edema and/or pneumonia. Atypical pneumonia including pneumocystis not excluded. Changes of centrilobular emphysema Cardiomegaly Marked enlargement of the pulmonary arteries which can be seen in the setting of pulmonary arterial hypertension Old granulomatous disease Atrophy of the [place] kidneys Additional nonemergent findings as above. PROCEDURE: NM LUNG SCAN PERF/VENT done on 11/30/18 TECHNIQUE: Perfusion images obtained with 3.86 mCi of technetium MAA. Ventilation images obtained with 17.32 mCi of seen on 133. HISTORY: resp distress with elevated ddimer COMPARISONS: Correlation is made with the prior plain film radiograph from November 29 FINDINGS: There is no evidence of segmental or subsegmental mismatch perfusion defects. IMPRESSION: Low probability for pulmonary emboli.. Assessment and Plan his 71-year-old woman with a history of hypertension, chronic kidney disease, status post renal transplant, asthma comes emergency room complaining of short ness of breath that started yesterday. She states all week she wasn't feeling well, she thought her asthma and allergy was acting up. She complains of cough productive of brown phlegm, fever, no chills Patient has history of smoking 1 pack x 3 days for 15 years.Patient also has history of asthma. Patient allergic to levofloxacin. Unable to obtain furthur history. Patient presently on 2 litres O2. O2 saturation 94%. - Patient Problems (1) Acute respiratory failure with hypoxia and hypercapnia Current Visit: Yes Status: Acute Plan to address problem: O2 2 litres via nasal canula. Albuterol/atrovent aerosol treatments q 6 hours. Continue I/V solumedrol. Continue ceftrioxone and zithromax. (2) CHF (congestive heart failure) Current Visit: Yes Status: Acute Qualifiers: Heart failure type: unspecified Heart failure chronicity: acute Qualified Code(s): I50.9 - Heart failure, unspecified Plan to address problem: Management as per primary care and cardiology. (3) PNA (pneumonia) Current Visit: Yes Status: Acute Qualifiers: Pneumonia type: due to unspecified organism Laterality: unspecified laterality Lung location: unspecified part of lung Qualified Code(s): J18.9 - Pneumonia, unspecified organism Plan to address problem: Continue ceftrioxone and zithromax. (4) CKD (chronic kidney disease) stage 3, GFR 30-59 ml/min Current Visit: Yes Status: Chronic Plan to address problem: Management as per nephrology. (5) History of kidney transplant Current Visit: Yes Status: Chronic Plan to address problem: Patient is on Tacrolimus. (6) Asthma exacerbation Current Visit: No Status: Acute Plan to address problem: O2 2 litres via nasal canula. Albuterol/atrovent aerosol treatments q 6 hours. Continue I/V solumedrol. Continue ceftrioxone and zithromax. (7) Hypertension Current Visit: No Status: Acute Plan to address problem: Management as per primary care. (8) History of HIV infection Current Visit: Yes Status: Acute Plan to address problem: Management as per infectious diseases.
[2018-11-30] MEDS: BROVANA NEBU IH SCH (21:50)
[2018-11-30] MEDS: PULMICORT IH SCH (21:50)
[2018-11-30] MEDS ORDERED: SALMETEROL IH SCH (22:00)
[2018-11-30] MEDS ORDERED: FLUTICASONE IH SCH (22:00)
[2018-11-30] MEDS: ROCEPHIN/NS 2 GM/100 ML 2 GM/100 ML BAG IV SCH (22:13)
[2018-12-01] MEDS: ZITHROMAX 500 MG in NACL 0.9% 250ML 250 ML IV SCH (02:33)
[2018-12-01] MEDS: DUONEB *Not for PRN Use IH SCH ×5 (03:28→22:05)
[2018-12-01] MEDS: SYNTHROID PO SCH (05:29)
[2018-12-01] MEDS: SOLU-Medrol IV SCH ×3 (05:29→21:34)
[2018-12-01 05:44] LABS: Hematocrit 35.7 % (30.3-42.9); Hemoglobin 11.4 gm/dl (10.1-14.3); Mean Corpuscular HGB Conc 32 % (30-34); Mean Corpuscular Volume 98 fl (79-97); Red Blood Count 3.65 M/mm3 (3.65-5.03); Red Cell Distribution Width 14.8 % (13.2-15.2)
[2018-12-01 05:50] LABS: Platelet Count 77 K/mm3 (140-440)
[2018-12-01 06:05] LABS: Calcium 8.5 mg/dL (8.4-10.2)
[2018-12-01 06:46] LABS: Basophils % (Manual) 0 % (0.0-1.8); Eosinophils % (Manual) 0 % (0.0-4.3); Total Cells Counted 25
[2018-12-01 06:48] LABS: Anisocytosis 1+; Giant Platelets Rare; Large Platelets Few; Platelet Estimate Consistent w Auto
[2018-12-01] MEDS: PULMICORT IH SCH ×2 (07:55→22:04)
[2018-12-01] MEDS: BROVANA NEBU IH SCH ×2 (07:55→22:04)
[2018-12-01] MEDS: CELLCEPT PO SCH ×2 (09:38→21:38)
[2018-12-01] MEDS: EPIVIR PO SCH (09:38)
[2018-12-01] MEDS: SODIUM CHLORIDE FLUSH SYRINGE 10 ML IV SCH ×2 (09:39→21:34)
[2018-12-01] MEDS ORDERED: PROAIR IH PRN ×2 (10:11)
[2018-12-01] MEDS ORDERED: PROVENTIL IH PRN (10:11)
--- NOTE | 2018-12-01 11:05 | Progress Note ---
Assessment and Plan Cultures: 11/30/2018 Blood: No growth to date A/P: 58-year oled woman with a history of hypertenison, chronic kidney disease status post renal transplant in 2013.and asthma that presented in the ED on 11/30/18 with complaints of SOB and productive cough of brown phelgm and subjective fever since yesterday. Now admitted with: 1. Multifocal Pneumonia: Chest xray shows bilateral perihilar infiltrates and small bilateral plueral effusions. Pulmonary perfusion imaging shows low probability for pulmonary emboli. Currently being treated with Azithromycin and Ceftriaxone. CT chest - Bilateral areas of groundglass opacity and consolidation. Differential includes edema and/or pneumonia. Atypical pneumonia including pneumocystis not excluded 2. Acute respiratory failure with hypoxia: likely due to multifocal pneumonia. 3. HIV: diagnosed 20 years ago. States VL is undetectable, Currently taking Triumeg at home. Non formulary. Started started Epzicom and Tivicay 3. Leukopenia: unclear etiology. could be Cellcept related v/s CMV reactivation v/s viral infection. 4. CKD: s/p Renal Transplant: Renal transplant in 2012 at [place]. On immunosuppression with Cellcept, Prograf and prednisone 5. Thrombocytopenia: 6. [employer] Abuse: counseled on smoking cessation Plan: -f/u blood cultures -continue Azithromycin 500mg IV every 24 hours -continue Ceftriaxone 2 gm IV every 24 hours -Continue Epzicom and Tivicay -f/u sputum culture - f/u CMV DNA, QN PCR, Legionella Antigen, EIA , Serum Aspergillus, Serum 1, 3 Beta d glucan, Steptococcus Pneumoniae urinary antigen,HIV RNA, Lymphocyte subset panel 2 -Pulmonary consult for Bronch/BAL- please sent BAl for bacterial fungal and AFB cultures, cytology. also send BAL galactomannan, BAL PJP DFA as send outs.Thanks d/w Dr. Chloé Lan, SPLITTER T[employer]ER [facility] M: [id number] O:[phone] Subjective Date of service: 12/01/18 Interval history: Patient seen and examined. Stated that she was feeling better today. No generalized pain or SOB. No fevers. Lab and imaging discussed, verbalized understanding. Objective - Exam Narrative Exam: Constitutional: Alert, cooperative. No acute distress Head, Ears, Nose: Normocephalic, atraumatic. External ears, nose normal Eyes: Conjunctivae/corneas clear. No icterus. No ptosis. Neck: Supple, no meningeal signs Oral: dentition fair, no thrush Cardiovascular: S1, S2 normal. Respiratory: Good air entry, Bilateral Rhonci, + GI: Soft, non-tender; bowel sounds normal. No peritoneal signs Musculoskeletal: No pedal edema, no cyanosis. Skin: No rash or abscess. Hem/Lymphatic: No palpable cervical or supraclavicular nodes. No lymphangitis Psych: Mood ok. Affect normal Neurological: Awake, alert, oriented. - Constitutional Vitals: Vital Signs Temp Pulse Resp BP Pulse Ox 98.0 F 88 20 125/74 96 12/01/18 03:26 12/01/18 03:37 12/01/18 03:37 12/01/18 03:26 12/01/18 03:26 Temperature -Last 24 Hours Temperature 98.0 F Temperature 98.1 F Temperature 98.3 F Temperature 98.1 F - Labs CBC & Chem 7: 12/01/18 05:26 12/01/18 05:26 Labs: Abnormal lab results 12/01/18 12/01/18 Range/Units 05:26 05:26 WBC 0.4 L* (4.5-11.0) K/mm3 MCV 98 H (79-97) fl Plt Count 77 L (140-440) K/mm3 Seg Neuts % (Manual) 76.0 H (40.0-70.0) % Seg Neutrophils # Man 0.3 L (1.8-7.7) K/mm3 Lymphocytes # (Manual) 0.1 L (1.2-5.4) K/mm3 BUN 33 H (7-17) mg/dL Creatinine 1.6 H (0.7-1.2) mg/dL Glucose 320 H (65-100) mg/dL
--- NOTE | 2018-12-01 15:24 | Consultation ---
History of Present Illness - Reason for Consult Consult date: 12/01/18 acute renal failure, chronic renal failure Requesting physician: OBED MARTINES - History of Present Illness Patient is a 58-year-old female who is presenting with some restorative distress. Patient states that she treated her cough and shortness of breath is progressively worsening for the last week to the pollen. Patient states that initially her sputum was clear however she did have some brown sputum today. Patient stated that tonight her respiratory distress worsened juan carlos matically to the point where she could not breathe. O2 sat was in the mid 80s when she was picked up by EMS. Patient is denying any chest pain subjective fevers chills nausea vomiting. Patient has a past history of some renal insufficiency after renal transplant 6 years ago. Patient also states that she had surgery, valvular heart however she does not have much other details. Patient states she has hypertension but otherwise is generally in great health after her renal transplant. Patient's only medications currently that she is reported to me as his mykj-too-upawivl Mucinex and allergy medicines that she started taking earlier this week. ROS: Stated complaint: CARRI Other details as noted in HPI Comment: All other systems reviewed and negative - Past Medical History Hx Hypertension: Yes (HTN) Hx Congestive Heart Failure: Yes Hx Diabetes: No Hx Renal Disease: Yes Hx Asthma: Yes Hx COPD: No Hx HIV: No Additional medical history: Kidney Transplant 2012 - Surgical History Hx Open Heart Surgery: Yes (HEART VALVE SURGERY 2010) Additional Surgical History: Kidney Transplant 2012. GRAFT RIGHT ARM. FISTULA LEFT ARM - Social History Smoking Status: Current Every Day Smoker Substance Use Type: None Medications and Allergies Allergies Allergy/AdvReac Type Severity Reaction Status Date / Time levofloxacin [From Levaquin] AdvReac Swelling Verified 11/18/15 19:00 Home Medications Medication Instructions Recorded Confirmed Last Taken Type Darunavir [Prezista] 600 mg PO BID 12/16/14 11/30/18 1 Day Ago History ~11/29/18 Levothyroxine [Synthroid] 25 mcg PO QAM 12/16/14 11/30/18 1 Day Ago History ~11/29/18 Mycophenolate [Cellcept] 1,000 mg PO BID 12/16/14 11/30/18 1 Day Ago History ~11/29/18 Raltegravir Potassium [Isentress] 400 mg PO BID 12/16/14 11/30/18 1 Day Ago History ~11/29/18 Ritonavir [Norvir] 100 mg PO BID 12/16/14 11/30/18 1 Day Ago History ~11/29/18 amLODIPine [Norvasc] 5 mg PO DAILY 12/16/14 11/30/18 Unknown History lamiVUDine [Epivir] 300 mg PO QDAY 12/16/14 11/30/18 2 Days Ago History ~11/28/18 oxyCODONE /ACETAMINOPHEN [Percocet 1 tab PO Q4HR PRN 12/16/14 11/30/18 Unknown History 5/325 mg] ALBUTEROL Inhaler (OR & NICU) 2 puff IH QID PRN #1 inhalation 12/17/14 11/30/18 Unknown Rx [ProAir HFA Inhaler] Fluticasone/Salmeterol [Advair 1 each IH BID #1 disk.w.dev 12/17/14 11/30/18 1 Day Ago Rx Diskus 250-50 mcg] ~11/29/18 predniSONE [Prednisone] 20 mg PO DAILY 8 Days tablet 12/17/14 11/30/18 Unknown Rx Amoxicillin/K Clav Tab [Augmentin 1 tab PO BID #14 tablet 01/20/15 11/30/18 Unknown Rx 875MG TAB] methylPREDNISolone [Medrol Dose 1 dose PO DAILY #1 pack 01/20/15 11/30/18 Unknown Rx Ubaldo] ALBUTEROL Inhaler (OR & NICU) 2 puff IH QID PRN #1 inhalation 11/19/15 11/30/18 Unknown Rx [ProAir HFA Inhaler] Azithromycin [Zithromax Z-UBALDO] 250 mg PO DAILY #6 tab 11/19/15 11/30/18 Unknown Rx guaiFENesin/CODEINE [Robitussin AC] 5 ml PO Q6H PRN #100 ml 11/19/15 11/30/18 Unknown Rx predniSONE [Deltasone] 20 mg PO BID #10 tab 11/19/15 11/30/18 Unknown Rx ALBUTEROL NEB's [Proventil 0.083% 2.5 mg IH TID PRN #25 dose 07/21/16 11/30/18 Unknown Rx NEBS] Azithromycin [Zithromax TAB] 500 mg PO QDAY #3 tablet 07/21/16 11/30/18 Unknown Rx Prednisone [predniSONE 10 mg 10 mg PO .TAPER #1 tab.ds.pk 07/21/16 11/30/18 Unknown Rx (6-Day Pack, 21 Tabs)] amLODIPine [Norvasc] 10 mg PO DAILY #30 tab 07/21/16 11/30/18 1 Day Ago Rx ~11/29/18 Tacrolimus [Prograf] 0.5 mg PO BID 11/30/18 11/30/18 1 Day Ago History ~11/29/18 Tacrolimus [Prograf] 0.5 mg PO Q12H 11/30/18 11/30/18 Unknown History Active Meds: Active Medications Abacavir Sulfate (Ziagen) 600 mg PO DAILY [facility] Acetaminophen (Tylenol) 650 mg PO Q4H PRN PRN Reason: Pain MILD(1-3)/Fever >100.5/MACHUCA Albuterol (Proventil) 2.5 mg IH Q4HRT PRN PRN Reason: Shortness Of Breath Albuterol/Ipratropium (Duoneb *Not For Prn Use*) 1 ampul IH Q6HRT [facility] Last Admin: 12/01/18 15:18 Dose: Not Given Documented by: Amlodipine Besylate (Norvasc) 5 mg PO DAILY [facility] Arformoterol Tartrate (Brovana Nebu) 15 mcg IH Q12HRT [facility] Last Admin: 12/01/18 07:55 Dose: 15 mcg Documented by: Budesonide (Pulmicort) 0.5 mg IH Q12HRT [facility] Last Admin: 12/01/18 07:55 Dose: 0.5 mg Documented by: Ceftriaxone Sodium (Rocephin/Ns 2 Gm/100 Ml) 2 gm in 100 mls @ 200 mls/hr IV Q24H [facility]; Protocol Last Admin: 11/30/18 22:13 Dose: 200 mls/hr Documented by: Azithromycin 500 mg/ Sodium (Chloride) 250 mls @ 250 mls/hr IV Q24H [facility] Last Admin: 12/01/18 02:33 Dose: 250 mls/hr Documented by: Lamivudine (Epivir) 300 mg PO DAILY [facility] Last Admin: 12/01/18 09:38 Dose: 300 mg Documented by: Levothyroxine Sodium (Synthroid) 25 mcg PO 0600 [facility] Last Admin: 12/01/18 05:29 Dose: 25 mcg Documented by: Methylprednisolone Sodium Succinate (Solu-Medrol) 60 mg IV Q8HR [facility] Last Admin: 12/01/18 05:29 Dose: 60 mg Documented by: Mycophenolate Mofetil (Cellcept) 1,000 mg PO BID [facility] Last Admin: 12/01/18 09:38 Dose: 1,000 mg Documented by: Ondansetron HCl (Zofran) 4 mg IV Q8H PRN PRN Reason: Nausea And Vomiting Pneumococcal Polyvalent Vaccine (Pneumovax 23) 0.5 ml IM .ONCE ONE Stop: 12/02/18 12:01 Sodium Chloride (Sodium Chloride Flush Syringe 10 Ml) 10 ml IV BID [facility] Last Admin: 12/01/18 09:39 Dose: 10 ml Documented by: Sodium Chloride (Sodium Chloride Flush Syringe 10 Ml) 10 ml IV PRN PRN PRN Reason: LINE FLUSH Tacrolimus (Prograf) 0.5 mg PO BID [facility] Exam - Vital Signs Vital signs: Vital Signs BP Pulse Ox 149/73 87 11/29/18 22:54 11/29/18 22:54 - Physical Exam Narrative exam: - General Limitations: No Limitations General appearance: alert, in distress - Head Head exam: Present: atraumatic, normocephalic - Eye Eye exam: Present: normal appearance, PERRL, EOMI - ENT ENT exam: Present: normal exam, mucous membranes moist - Neck Neck exam: Present: normal inspection - Respiratory Respiratory exam: Present: respiratory distress, wheezes, rales, rhonchi, other (tachypnea). Absent: normal lung sounds bilaterally - Cardiovascular Cardiovascular Exam: Present: regular rate, normal rhythm. Absent: systolic murmur, diastolic murmur, rubs, gallop - GI/Abdominal GI/Abdominal exam: Present: soft, normal bowel sounds. Absent: distended, tenderness, guarding, rebound, rigid - Extremities Exam Extremities exam: Present: normal inspection - Back Exam Back exam: Present: normal inspection - Neurological Exam Neurological exam: Present: alert, oriented X3 - Psychiatric Psychiatric exam: Present: normal affect, normal mood - Skin Skin exam: Present: warm, dry, intact, normal color. Absent: rash Results - Lab Results 12/01/18 05:26 12/01/18 05:26 Most recent lab results Calcium 8.5 mg/dL (8.4-10.2) 12/01/18 05:26 Assessment and Plan Impression: * BRADLEY on CKD s/p renal transplant * PNA * Acute rest failure * :eukopenia * HIV * Pancytopenia Plan: * iv abx per ID * admits to recent cmv infection, restart valcyte on her own, may be cause of leukopenia as well * increase volume intake * avoid nephrotoxins * strict i/os * cr rising, appears intravascular deplete * recommend transferring to transplant center
--- NOTE | 2018-12-01 17:06 | Progress Note ---
Assessment and Plan Assessment and plan: This 71-year-old woman with a history of hypertension, chronic kidney disease, status post renal transplant, asthma comes emergency room complaining of shortness of breath that started yesterday. She states all week she wasn't feeling well, she thought her asthma and allergy was acting up. She complains of cough productive of brown phlegm, fever, no chills CT Chest: Bilateral areas of groundglass opacity and consolidation. Differential includes edema and/or pneumonia. Atypical pneumonia including pneumocystis not excluded. Changes of centrilobular emphysema Cardiomegaly Marked enlargement of the pulmonary arteries which can be seen in the setting of pulmonary arterial hypertension. Old granulomatous disease. Atrophy of the kashia kidneys.Additional nonemergent findings as above. Acute respiratory failure, hypoxia Multifocal pneumonia Leukopenia, thrombocytopenia HIV Hypertension Acute kidney injury on Chronic kidney disease, status post renal transplant ?VASOMOTOR NEPHROPATHY Asthma with exacebration Tobacco use disorder Plan Continue supportive care. Patient noted to have worsening neutropenia and leukopenia Discussed findings with infectious disease specialist recommended a bronchoscopy that this is possibly discussed with machine veneer repairer anticipates will happen tomorrow. Although patient was directed to leave tomorrow due to the fact that she has to take care of herself work to pay her bills. Her condition has been specifically described that she verbalized understanding. Nephrology pending, Monitor renal function, Start gentle hydration Cultures following bronch PER ID Start home meds Abx per ID Taper steroids, nebulizer treatments VQ scan is pending, consult pulmonary DVT prophylaxis Follow-up medication reconciliation Plan discussed with patient in detail History Interval history: Patient seen and examined today, reports some improvement but still with mild shortness of breath and cough, non productive. No other adverse event reported by nursing staff. Hospitalist Physical - Physical exam Narrative exam: VITAL SIGNS: Reviewed. GENERAL: The patient appeared well nourished and normally developed, Vital signs as documented. HEAD: No signs of head trauma. EYES: Pupils are equal. Extraocular motions intact. EARS: Hearing grossly intact. MOUTH: Oropharynx is normal. NECK: No adenopathy, no JVD. CHEST: Chest with crackles breath sounds bilaterally. No wheezes. CARDIAC: Regular rate and rhythm. S1 and S2, without murmurs, gallops, or rubs. VASCULAR: No Edema. Peripheral pulses normal and equal in all extremities. ABDOMEN: Soft, non tender and non distended. No rebound or guarding, and no masses palpated. Bowel Sounds normal. MUSCULOSKELETAL: Good range of motion of all major joints. Extremities without clubbing, cyanosis or edema. NEUROLOGIC EXAM: Alert and oriented x 3 No focal sensory or strength deficits. Speech normal. Follows commands. PSYCHIATRIC: Mood normal. SKIN: No rash or lesions. - Constitutional Vitals: Temp Pulse Resp BP Pulse Ox 98.2 F 84 18 144/81 89 12/01/18 15:51 12/01/18 15:51 12/01/18 15:51 12/01/18 15:51 12/01/18 15:51 Results - Labs CBC & Chem 7: 12/01/18 05:26 12/01/18 05:26 Labs: Laboratory Last Values WBC 0.4 K/mm3 (4.5-11.0) L* 12/01/18 05:26 RBC 3.65 M/mm3 (3.65-5.03) 12/01/18 05:26 Hgb 11.4 gm/dl (10.1-14.3) 12/01/18 05:26 Hct 35.7 % (30.3-42.9) 12/01/18 05:26 MCV 98 fl (79-97) H 12/01/18 05:26 MCH 31 pg (28-32) 12/01/18 05:26 MCHC 32 % (30-34) 12/01/18 05:26 RDW 14.8 % (13.2-15.2) 12/01/18 05:26 Plt Count 77 K/mm3 (140-440) L 12/01/18 05:26 Lymph % (Auto) [employer] 11/29/18 23:14 [facility] % (Auto) [employer] 11/29/18 23:14 Eos % (Auto) [employer] 11/29/18 23:14 Baso % (Auto) [employer] 11/29/18 23:14 Lymph # [employer] 11/29/18 23:14 [facility] # [employer] 11/29/18 23:14 Eos # [employer] 11/29/18 23:14 Baso # [employer] 11/29/18 23:14 Add Manual Diff Complete 12/01/18 05:26 Total Counted 25 12/01/18 05:26 Seg Neutrophils % [employer] 11/29/18 23:14 Seg Neuts % (Manual) 76.0 % (40.0-70.0) H 12/01/18 05:26 Band Neutrophils % 0 % 12/01/18 05:26 Lymphocytes % (Manual) 20.0 % (13.4-35.0) 12/01/18 05:26 Reactive Lymphs % (Man) 0 % 12/01/18 05:26 Monocytes % (Manual) 4.0 % (0.0-7.3) 12/01/18 05:26 Eosinophils % (Manual) 0 % (0.0-4.3) 12/01/18 05:26 Basophils % (Manual) 0 % (0.0-1.8) 12/01/18 05:26 Metamyelocytes % 0 % 12/01/18 05:26 Myelocytes % 0 % 12/01/18 05:26 Promyelocytes % 0 % 12/01/18 05:26 Blast Cells % 0 % 12/01/18 05:26 Nucleated RBC % Not Reportable 12/01/18 05:26 Seg Neutrophils # [employer] 11/29/18 23:14 Seg Neutrophils # Man 0.3 K/mm3 (1.8-7.7) L 12/01/18 05:26 Band Neutrophils # 0.0 K/mm3 12/01/18 05:26 Lymphocytes # (Manual) 0.1 K/mm3 (1.2-5.4) L 12/01/18 05:26 Abs React Lymphs (Man) 0.0 K/mm3 12/01/18 05:26 Monocytes # (Manual) 0.0 K/mm3 (0.0-0.8) 12/01/18 05:26 Eosinophils # (Manual) 0.0 K/mm3 (0.0-0.4) 12/01/18 05:26 Basophils # (Manual) 0.0 K/mm3 (0.0-0.1) 12/01/18 05:26 Metamyelocytes # 0.0 K/mm3 12/01/18 05:26 Myelocytes # 0.0 K/mm3 12/01/18 05:26 Promyelocytes # 0.0 K/mm3 12/01/18 05:26 Blast Cells # 0.0 K/mm3 12/01/18 05:26 WBC Morphology Not Reportable 12/01/18 05:26 Hypersegmented Neuts Not Reportable 12/01/18 05:26 Hyposegmented Neuts Not Reportable 12/01/18 05:26 Hypogranular Neuts Not Reportable 12/01/18 05:26 Smudge Cells Not Reportable 12/01/18 05:26 Toxic Granulation Not Reportable 12/01/18 05:26 Toxic Vacuolation Not Reportable 12/01/18 05:26 Dohle Bodies Not Reportable 12/01/18 05:26 Pelger-Huet Anomaly Not Reportable 12/01/18 05:26 Teo Rods Not Reportable 12/01/18 05:26 Platelet Estimate Consistent w auto 12/01/18 05:26 Clumped Platelets Not Reportable 12/01/18 05:26 Plt Clumps, EDTA Not Reportable 12/01/18 05:26 Large Platelets Few 12/01/18 05:26 Giant Platelets Rare 12/01/18 05:26 Platelet Satelliting Not Reportable 12/01/18 05:26 Plt Morphology Comment Not Reportable 12/01/18 05:26 RBC Morphology Not Reportable 12/01/18 05:26 Dimorphic RBCs Not Reportable 12/01/18 05:26 Polychromasia Not Reportable 12/01/18 05:26 Hypochromasia Not Reportable 12/01/18 05:26 Poikilocytosis Not Reportable 12/01/18 05:26 Anisocytosis 1+ 12/01/18 05:26 Microcytosis Not Reportable 12/01/18 05:26 Macrocytosis Not Reportable 12/01/18 05:26 Spherocytes Not Reportable 12/01/18 05:26 Pappenheimer Bodies Not Reportable 12/01/18 05:26 Sickle Cells Not Reportable 12/01/18 05:26 Target Cells Not Reportable 12/01/18 05:26 Tear Drop Cells Not Reportable 12/01/18 05:26 Ovalocytes Not Reportable 12/01/18 05:26 Helmet Cells Not Reportable 12/01/18 05:26 [place] Bodies Not Reportable 12/01/18 05:26 [place] Rings Not Reportable 12/01/18 05:26 [place] Cells Not Reportable 12/01/18 05:26 Bite Cells Not Reportable 12/01/18 05:26 Crenated Cell Not Reportable 12/01/18 05:26 Elliptocytes Not Reportable 12/01/18 05:26 Acanthocytes (Spur) Not Reportable 12/01/18 05:26 Rouleaux Not Reportable 12/01/18 05:26 Hemoglobin C Crystals Not Reportable 12/01/18 05:26 Schistocytes Not Reportable 12/01/18 05:26 Malaria parasites Not Reportable 12/01/18 05:26 Narayan Bodies Not Reportable 12/01/18 05:26 Hem Pathologist Commnt No 12/01/18 05:26 D-Dimer 6160.06 ng/mlDDU (0-234) H 11/29/18 23:14 POC ABG pH 7.307 (7.35-7.45) L 11/30/18 04:53 POC ABG pCO2 45.9 (35-45) H 11/30/18 04:53 POC ABG pO2 82 (80-105) 11/30/18 04:53 POC ABG HCO3 22.9 (22-26 mml/L) 11/30/18 04:53 POC ABG Total CO2 24 (23-27mmol/L) 11/30/18 04:53 POC ABG O2 Sat 95 11/30/18 04:53 POC ABG Base Excess -3 ((-2) - (+3)mmol/L) 11/30/18 04:53 FiO2 45 % 11/30/18 04:53 Sodium 138 mmol/L (137-145) 12/01/18 05:26 Potassium 4.1 mmol/L (3.6-5.0) 12/01/18 05:26 Chloride 103.0 mmol/L (98-107) 12/01/18 05:26 Carbon Dioxide 22 mmol/L (22-30) 12/01/18 05:26 Anion Gap 17 mmol/L 12/01/18 05:26 BUN 33 mg/dL (7-17) H 12/01/18 05:26 Creatinine 1.6 mg/dL (0.7-1.2) H 12/01/18 05:26 Estimated GFR 40 ml/min 12/01/18 05:26 BUN/Creatinine Ratio 21 % 12/01/18 05:26 Glucose 320 mg/dL (65-100) H 12/01/18 05:26 Lactic Acid 0.60 mmol/L (0.7-2.0) L 11/30/18 04:37 Calcium 8.5 mg/dL (8.4-10.2) 12/01/18 05:26 Troponin T < 0.010 ng/mL (0.00-0.029) 11/29/18 23:14 NT-Pro-B Natriuret Pep 5555 pg/mL (0-900) H 11/29/18 23:14 Urine Color Straw (Yellow) 11/30/18 05:11 Urine Turbidity Clear (Clear) 11/30/18 05:11 Urine pH 6.0 (5.0-7.0) 11/30/18 05:11 Ur Specific [place] 1.006 (1.003-1.030) 11/30/18 05:11 Urine Protein <15 mg/dl mg/dL (Negative) 11/30/18 05:11 Urine Glucose (UA) Neg mg/dL (Negative) 11/30/18 05:11 Urine Ketones Neg mg/dL (Negative) 11/30/18 05:11 Urine Blood Neg (Negative) 11/30/18 05:11 Urine Nitrite Neg (Negative) 11/30/18 05:11 Urine Bilirubin Neg (Negative) 11/30/18 05:11 Urine Urobilinogen < 2.0 mg/dL (<2.0) 11/30/18 05:11 Ur Leukocyte Esterase Neg (Negative) 11/30/18 05:11 Urine WBC (Auto) < 1.0 /HPF (0.0-6.0) 11/30/18 05:11 Urine RBC (Auto) 1.0 /HPF (0.0-6.0) 11/30/18 05:11 U Epithel Cells (Auto) 1.0 /HPF (0-13.0) 11/30/18 05:11 Urine Bacteria (Auto) 2+ /HPF (Negative) 11/30/18 05:11 Urine Mucus Few /HPF 11/30/18 05:11 Active Medications - Current Medications Current Medications: Generic Name Dose Route Start Last Admin Trade Name Freq PRN Reason Stop Dose Admin Abacavir Sulfate 600 mg 12/01/18 10:00 Ziagen PO DAILY [facility] Acetaminophen 650 mg 11/30/18 01:50 Tylenol PO Q4H PRN Pain MILD(1-3)/Fever >100.5/MACHUCA Albuterol 2.5 mg 11/30/18 11:38 Proventil IH Q4HRT PRN Shortness Of Breath Albuterol/Ipratropium 1 ampul 11/30/18 02:00 12/01/18 15:18 Duoneb *Not For Prn Use* IH Not Given Q6HRT [facility] Amlodipine Besylate 5 mg 12/02/18 10:00 Norvasc PO DAILY [facility] Arformoterol Tartrate 15 mcg 11/30/18 20:00 12/01/18 07:55 Brovana Nebu IH 15 mcg Q12HRT [facility] Administration Budesonide 0.5 mg 11/30/18 20:00 12/01/18 07:55 Pulmicort IH 0.5 mg Q12HRT [facility] Administration Ceftriaxone Sodium 2 gm in 100 mls @ 200 mls/hr 11/30/18 17:00 11/30/18 22:13 Rocephin/Ns 2 Gm/100 Ml IV 200 mls/hr Q24H [facility] Administration Protocol Azithromycin 500 mg/ Sodium 250 mls @ 250 mls/hr 12/01/18 02:00 12/01/18 02:33 Chloride IV 250 mls/hr Q24H [facility] Administration Lamivudine 300 mg 12/01/18 10:00 12/01/18 09:38 Epivir PO 300 mg DAILY [facility] Administration Levothyroxine Sodium 25 mcg 12/01/18 06:00 12/01/18 05:29 Synthroid PO 25 mcg 0600 [facility] Administration Methylprednisolone Sodium Succinate 60 mg 11/30/18 06:00 12/01/18 05:29 Solu-Medrol IV 60 mg Q8HR [facility] Administration Mycophenolate Mofetil 1,000 mg 11/30/18 14:00 12/01/18 09:38 Cellcept PO 1,000 mg BID [facility] Administration Ondansetron HCl 4 mg 11/30/18 01:50 Zofran IV Q8H PRN Nausea And Vomiting Pneumococcal Polyvalent Vaccine 0.5 ml 12/02/18 12:00 Pneumovax 23 IM 12/02/18 12:01 .ONCE ONE Sodium Chloride 10 ml 11/30/18 10:00 12/01/18 09:39 Sodium Chloride Flush Syringe 10 Ml IV 10 ml BID [facility] Administration Sodium Chloride 10 ml 11/30/18 01:50 Sodium Chloride Flush Syringe 10 Ml IV PRN PRN LINE FLUSH Tacrolimus 0.5 mg 12/01/18 22:00 Prograf PO BID [facility]
[2018-12-01] MEDS: ROCEPHIN/NS 2 GM/100 ML 2 GM/100 ML BAG IV SCH (17:39)
[2018-12-01] MEDS ORDERED: NACL 0.9% 1000 ML 1,000 ML IV SCH (18:00)
[2018-12-01] MEDS: ZIAGEN PO SCH (19:05)
[2018-12-01] MEDS: TIVICAY PO SCH (19:06)
[2018-12-01] MEDS: PROGRAF PO SCH ×2 (21:33→21:38)
--- NOTE | 2018-12-01 22:07 | Progress Note ---
Assessment and Plan Patient awake. resting on 21/2 litres O2.O2 saturation 100%. Patient says breathing better.Patient afebrile. Patient leukopenic. - Patient Problems (1) Acute respiratory failure with hypoxia and hypercapnia Current Visit: Yes Status: Acute Plan to address problem: O2 21/2 litres via nasal canula. Albuterol/atrovent aerosol treatments q 6 hours. Continue I/V solumedrol. Continue ceftrioxone and zithromax. (2) CHF (congestive heart failure) Current Visit: Yes Status: Acute Qualifiers: Heart failure type: unspecified Heart failure chronicity: acute Qualified Code(s): I50.9 - Heart failure, unspecified Plan to address problem: Management as per primary care and cardiology. (3) PNA (pneumonia) Current Visit: Yes Status: Acute Qualifiers: Pneumonia type: due to unspecified organism Laterality: unspecified laterality Lung location: unspecified part of lung Qualified Code(s): J18.9 - Pneumonia, unspecified organism Plan to address problem: Continue ceftrioxone and zithromax. (4) CKD (chronic kidney disease) stage 3, GFR 30-59 ml/min Current Visit: Yes Status: Chronic Plan to address problem: Management as per nephrology. (5) History of kidney transplant Current Visit: Yes Status: Chronic Plan to address problem: Patient is on Tacrolimus. (6) Asthma exacerbation Current Visit: No Status: Acute Plan to address problem: O2 2 litres via nasal canula. Albuterol/atrovent aerosol treatments q 6 hours. Continue I/V solumedrol. Continue ceftrioxone and zithromax. (7) Hypertension Current Visit: No Status: Acute Plan to address problem: Management as per primary care. (8) History of HIV infection Current Visit: Yes Status: Acute Plan to address problem: Management as per infectious diseases. Subjective Date of service: 12/01/18 Interval history: Patient awake. resting on 21/2 litres O2.O2 saturation 100%. Patient says breathing better.Patient afebrile. Patient leukopenic. Objective Vital Signs - 12hr 12/01/18 12/01/18 12/01/18 12:38 12:48 15:51 Temperature 98.2 F Pulse Rate 84 Pulse Rate [ 80 83 Anterior Bilateral Throughout] Respiratory 18 Rate Respiratory 20 20 Rate [Anterior Bilateral Throughout] Blood Pressure 144/81 O2 Sat by Pulse 89 Oximetry 12/01/18 12/01/18 20:29 20:30 Temperature 98.2 F Pulse Rate 90 Pulse Rate [ Anterior Bilateral Throughout] Respiratory 17 Rate Respiratory Rate [Anterior Bilateral Throughout] Blood Pressure 144/79 O2 Sat by Pulse 100 Oximetry Constitutional: no acute distress, alert Eyes: non-icteric ENT: oropharynx moist Neck: supple, no JVD Ascultation: Bilateral: diminished breath sounds, other (Prolonged expiratory phase.) Cardiovascular: regular rate and rhythm Gastrointestinal: normoactive bowel sounds, soft, non-tender Integumentary: normal Extremities: no cyanosis, no edema Neurologic: non-focal exam, pupils equal and round, CN II-XII normal Psychiatric: anxious CBC and BMP: 12/01/18 05:26 12/01/18 05:26 ABG, PT/INR, D-dimer: ABG POC ABG pH 7.307 (7.35-7.45) L 11/30/18 04:53 POC ABG pCO2 45.9 (35-45) H 11/30/18 04:53 POC ABG pO2 82 (80-105) 11/30/18 04:53 POC ABG HCO3 22.9 (22-26 mml/L) 11/30/18 04:53 POC ABG Total CO2 24 (23-27mmol/L) 11/30/18 04:53 POC ABG O2 Sat 95 11/30/18 04:53 PT/INR, D-dimer D-Dimer 6160.06 ng/mlDDU (0-234) H 11/29/18 23:14 Abnormal lab findings: Abnormal Labs 11/29/18 11/29/18 11/29/18 23:14 23:14 23:14 WBC 0.8 L* RBC 3.61 L MCV 98 H Plt Count 78 L Seg Neuts % (Manual) 22.0 L Lymphocytes % (Manual) 68.0 H Monocytes % (Manual) 8.0 H Seg Neutrophils # Man 0.2 L Lymphocytes # (Manual) 0.5 L D-Dimer 6160.06 H POC ABG pH POC ABG pCO2 Sodium 133 L Potassium 3.5 L BUN 21 H Creatinine 1.4 H Glucose 144 H Lactic Acid NT-Pro-B Natriuret Pep 11/29/18 11/30/18 11/30/18 23:14 01:08 04:37 WBC RBC MCV Plt Count Seg Neuts % (Manual) Lymphocytes % (Manual) Monocytes % (Manual) Seg Neutrophils # Man Lymphocytes # (Manual) D-Dimer POC ABG pH POC ABG pCO2 Sodium Potassium BUN Creatinine Glucose Lactic Acid 0.60 L 0.60 L NT-Pro-B Natriuret Pep 5555 H 11/30/18 12/01/18 12/01/18 04:53 05:26 05:26 WBC 0.4 L* RBC MCV 98 H Plt Count 77 L Seg Neuts % (Manual) 76.0 H Lymphocytes % (Manual) Monocytes % (Manual) Seg Neutrophils # Man 0.3 L Lymphocytes # (Manual) 0.1 L D-Dimer POC ABG pH 7.307 L POC ABG pCO2 45.9 H Sodium Potassium BUN 33 H Creatinine 1.6 H Glucose 320 H Lactic Acid NT-Pro-B Natriuret Pep
[2018-12-02] MEDS: DUONEB *Not for PRN Use IH SCH ×3 (02:00→13:26)
[2018-12-02] MEDS: ZITHROMAX 500 MG in NACL 0.9% 250ML 250 ML IV SCH (02:29)
[2018-12-02] MEDS: SYNTHROID PO SCH (05:31)
[2018-12-02] MEDS: SOLU-Medrol IV SCH (05:31)
[2018-12-02 06:21] LABS: Hematocrit 34.6 % (30.3-42.9); Hemoglobin 11.1 gm/dl (10.1-14.3); Mean Corpuscular HGB Conc 32 % (30-34); Mean Corpuscular Volume 98 fl (79-97); Red Blood Count 3.52 M/mm3 (3.65-5.03); Red Cell Distribution Width 14.7 % (13.2-15.2)
[2018-12-02 06:27] LABS: Platelet Count 76 K/mm3 (140-440)
[2018-12-02 06:47] LABS: Albumin 3.1 g/dL (3.9-5); Calcium 8.2 mg/dL (8.4-10.2)
[2018-12-02] MEDS: BROVANA NEBU IH SCH (08:09)
[2018-12-02] MEDS: PULMICORT IH SCH (08:09)
[2018-12-02 08:51] LABS: Total Cells Counted 100
[2018-12-02 08:53] LABS: Anisocytosis 1+; Basophils % (Manual) 0 % (0.0-1.8); Eosinophils % (Manual) 0 % (0.0-4.3); Giant Platelets Few; Large Platelets Few; Platelet Estimate Consistent w Auto
[2018-12-02] MEDS ORDERED: NORVASC PO SCH (10:00)
--- NOTE | 2018-12-02 10:08 | Progress Note ---
Assessment and Plan Cultures: 11/30/2018 Blood: No growth to date A/P: 58-year oled woman with a history of hypertenison, chronic kidney disease status post renal transplant in 2013.and asthma that presented in the ED on 11/30/18 with complaints of SOB and productive cough of brown phelgm and subjective fever since yesterday. Now admitted with: 1. Multifocal Pneumonia: Chest xray shows bilateral perihilar infiltrates and small bilateral plueral effusions. Pulmonary perfusion imaging shows low probability for pulmonary emboli. Currently being treated with Azithromycin and Ceftriaxone. CT chest - Bilateral areas of groundglass opacity and consolidation. Differential includes edema and/or pneumonia. Atypical pneumonia including pneumocystis not excluded 2. Acute respiratory failure with hypoxia: likely due to multifocal pneumonia. 3. HIV: diagnosed 20 years ago. States VL is undetectable, Currently taking Triumeg at home. Non formulary. Started started Epzicom and Tivicay 3. Leukopenia: unclear etiology. could be Cellcept related v/s CMV reactivation v/s viral infection. 4. CKD: s/p Renal Transplant: Renal transplant in 2013 at [place]. On immunosuppression with Cellcept, Prograf and prednisone 5. Thrombocytopenia: unclear etiology 6. [employer] Abuse: counseled on smoking cessation Plan: -f/u blood cultures -continue Azithromycin 500mg IV every 24 hours -continue Ceftriaxone 2 gm IV every 24 hours -Continue Epzicom and Tivicay -f/u sputum culture - f/u CMV DNA, QN PCR, Legionella Antigen, EIA , Serum Aspergillus, Serum 1, 3 Beta d glucan, Steptococcus Pneumoniae urinary antigen,HIV RNA, Lymphocyte subset panel 2 - f/u Pulmonary consult for Bronch/BAL- please sent BAl for bacterial fungal and AFB cultures, cytology. also send BAL galactomannan, BAL PJP DFA as send outs. Patient stated that she was leaving the hospital AMA - discussed high mortality risk of leaving AMA. s/w Dr. Chloé Lan, [facility] M: [phone] O:[phone] Subjective Date of service: 12/02/18 Interval history: Patient seen and examined. Stated that she had to go home today at 3:00 Discussed high mortality risk if she leaves AMA..She verbalized understanding, and stated "You can't make me stay". Objective - Exam Narrative Exam: Constitutional: Alert, cooperative. No acute distress Head, Ears, Nose: Normocephalic, atraumatic. External ears, nose normal Eyes: Conjunctivae/corneas clear. No icterus. No ptosis. Neck: Supple, no meningeal signs Oral: dentition fair, no thrush Cardiovascular: S1, S2 normal. Respiratory: Good air entry, Bilateral Rhonci, + , + cough GI: Soft, non-tender; bowel sounds normal. No peritoneal signs Musculoskeletal: No pedal edema, no cyanosis. Skin: No rash or abscess. Hem/Lymphatic: No palpable cervical or supraclavicular nodes. No lymphangitis Psych: Mood ok. Affect agitated but cooperative Neurological: Awake, alert, oriented. - Constitutional Vitals: Vital Signs Temp Pulse Resp BP Pulse Ox 98.7 F 82 20 168/97 97 12/02/18 07:03 12/02/18 08:20 12/02/18 08:20 12/02/18 07:03 12/02/18 08:54 Temperature -Last 24 Hours Temperature 98.7 F Temperature 98.4 F Temperature 98.2 F Temperature 98.2 F Temperature 98.2 F - Labs CBC & Chem 7: 12/02/18 06:01 12/02/18 06:01 Labs: Abnormal lab results 12/02/18 12/02/18 Range/Units 06:01 06:01 WBC 0.6 L* (4.5-11.0) K/mm3 RBC 3.52 L (3.65-5.03) M/mm3 MCV 98 H (79-97) fl Plt Count 76 L (140-440) K/mm3 Seg Neuts % (Manual) 84.0 H (40.0-70.0) % Lymphocytes % (Manual) 13.0 L (13.4-35.0) % Seg Neutrophils # Man 0.5 L (1.8-7.7) K/mm3 Lymphocytes # (Manual) 0.1 L (1.2-5.4) K/mm3 BUN 31 H (7-17) mg/dL Creatinine 1.4 H (0.7-1.2) mg/dL Glucose 292 H (65-100) mg/dL Calcium 8.2 L (8.4-10.2) mg/dL Total Protein 6.2 L (6.3-8.2) g/dL Albumin 3.1 L (3.9-5) g/dL
[2018-12-02] MEDS: EPIVIR PO SCH (10:50)
[2018-12-02] MEDS: ZIAGEN PO SCH (10:51)
[2018-12-02] MEDS: PROGRAF PO SCH (10:52)
[2018-12-02] MEDS: CELLCEPT PO SCH (10:52)
[2018-12-02] MEDS: SODIUM CHLORIDE FLUSH SYRINGE 10 ML IV SCH (10:52)
[2018-12-02] MEDS: TIVICAY PO SCH (11:25)
[2018-12-02] MEDS ORDERED: PNEUMOVAX 23 IM ONE (12:00)
[2018-12-02] MEDS ORDERED: AFLURIA QUAD 2018-2019 SYRINGE IM ONE (12:00)
[2018-12-02 13:09] VITALS: BP 150/78
--- NOTE | 2018-12-02 14:08 | Discharge Summary ---
Providers - Providers Date of Admission: 11/30/18 01:50 Date of discharge: 12/02/18 Attending physician: BHAVESH SU 11/30/18 01:50 Consult to Physician [CONS] Routine Comment: Consulting Provider: KEESHA HU Physician Instructions: Reason For Exam: multifocal pna 11/30/18 11:40 Consult to Physician [CONS] Routine Comment: Consulting Provider: ALIZA CHILEL Physician Instructions: Reason For Exam: BRADLEY, RENAL TRANSPLANT 11/30/18 11:44 Consult to Physician [CONS] Routine Comment: Consulting Provider: HORTENSIA SOTO Physician Instructions: Reason For Exam: PNEUMONIA Primary care physician: AUGUSTINE JENKINS Hospitalization Condition: Stable Hospital course: Patient is a 58 yo woman with a history of hypertension, chronic kidney disease, status post renal transplant, asthma comes emergency room complaining of shortness of breath that started yesterday. She states all week she wasn't feeling well, she thought her asthma and allergy was acting up. She complains of cough productive of brown phlegm, fever, no chills * CT Chest: Bilateral areas of groundglass opacity and consolidation. Differen tial includes edema and/or pneumonia. Atypical pneumonia including pneumocystis not excluded. Changes of centrilobular emphysema, Cardiomegaly Marked enlargement of the pulmonary arteries which can be seen in the setting of pulmonary arterial hypertension. Old granulomatous disease. Atrophy of the [place] kidneys. Additional nonemergent findings as above. 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 Patient noted to have worsening neutropenia and leukopenia Discussed findings with infectious disease specialist recommended a bronchoscopy that this is possibly discussed with boy's adviser anticipates will happen tomorrow. Although patient was directed to leave today due to the fact that she has to take care of herself to pay her bills. Her condition has been specifically described and she verbalized understanding. Nephrology pending, Monitor renal function, Start gentle hydration Cultures following bronch PER ID Start home meds Abx per ID Taper steroids, nebulizer treatments VQ scan is pending, consult pulmonary DVT prophylaxis Follow-up medication reconciliation Plan discussed with patient in detail and with ID and boy's adviser Patient is refusing to stay for Bronchoscopy, risk of leaving AMA explained in detail on more than one occasion by more than one physician. I Disposition: DC-01 TO HOME OR SELFCARE Time spent for discharge: 32 minutes Core Measure Documentation - Palliative Care Palliative Care/ Comfort Measures: Not Applicable - Core Measures Any of the following diagnoses?: none - VTE Discharge Requirements Deep Vein Thrombosis/Pulmonary Embolism Present on Admission: No Has pt received <5 days of overlap therapy or INR<2.0: No Anticoagulant overlap therapy prescribed at discharge: No Contraindication No Overlap Therapy order at DC: Not Indicated Exam - Physical Exam Narrative exam: Gen: WDWN, NAD, Awake, Alert, Orientated HEENT: NCAT, EOMI, PERRL, OP Clear Neck: supple, no adenopathy, no thyromegaly, no JVD CVS/Heart: RRR, normal S1S2, pulses present bilaterally Chest/Lungs: CTA B, Symmetrical chest expansion, good air entry bilaterally GI/Abdomen: soft, NTND, good bowel sounds, no guarding or rebound /Bladder: no suprapubic tenderness, no CVA or paraspinal tenderness Extermity/Skin: no c/c/e, no obvious rash MSK: FROM x 4 Neuro: CN 2-12 grossly intact, no new focal deficits Psych: calm - Constitutional Vitals: Temp Pulse Resp BP Pulse Ox 98.7 F 96 H 18 150/78 93 12/02/18 07:03 12/02/18 13:26 12/02/18 13:26 12/02/18 13:07 12/02/18 13:07 Plan Activity: other (no strenous activity) Diet: regular Follow up with: AUGUSTINE JENKINS MD [Primary Care Provider] - 7 Days Forms: AMA Form
--- NOTE | 2018-12-02 14:43 | Progress Note ---
Assessment and Plan Patient awake. Resting on room air.Patient does not want say in the hospital despite explaining serious ness of going home with out finishing treatment.She wants to go home signing against medical advise. - Patient Problems (1) Acute respiratory failure with hypoxia and hypercapnia Status: Acute Plan to address problem: O2 21/2 litres via nasal canula. Albuterol/atrovent aerosol treatments q 6 hours. Continue I/V solumedrol. Continue ceftrioxone and zithromax. (2) CHF (congestive heart failure) Status: Acute Qualifiers: Heart failure type: unspecified Heart failure chronicity: acute Qualified Code(s): I50.9 - Heart failure, unspecified Plan to address problem: Management as per primary care and cardiology. (3) PNA (pneumonia) Status: Acute Qualifiers: Pneumonia type: due to unspecified organism Laterality: unspecified laterality Lung location: unspecified part of lung Qualified Code(s): J18.9 - Pneumonia, unspecified organism Plan to address problem: Continue ceftrioxone and zithromax. (4) CKD (chronic kidney disease) stage 3, GFR 30-59 ml/min Status: Chronic Plan to address problem: Management as per nephrology. (5) History of kidney transplant Status: Chronic Plan to address problem: Patient is on Tacrolimus. (6) Asthma exacerbation Status: Acute Plan to address problem: O2 2 litres via nasal canula. Albuterol/atrovent aerosol treatments q 6 hours. Continue I/V solumedrol. Continue ceftrioxone and zithromax. (7) Hypertension Status: Acute Plan to address problem: Management as per primary care. (8) History of HIV infection Status: Acute Plan to address problem: Management as per infectious diseases. Subjective Date of service: 12/02/18 Interval history: Patient awake. Resting on room air.Patient does not want say in the hospital despite explaining serious ness of going home with out finishing treatment.She wants to go home signing against medical advise. Objective Vital Signs - 12hr 12/02/18 12/02/18 12/02/18 05:43 05:44 07:00 Temperature 98.4 F Pulse Rate 75 75 85 Pulse Rate [ Anterior Bilateral Throughout] Pulse Rate [ Apical] Respiratory 18 Rate Respiratory Rate [Anterior Bilateral Throughout] Blood Pressure 165/94 O2 Sat by Pulse 92 92 Oximetry 12/02/18 12/02/18 12/02/18 07:03 08:00 08:09 Temperature 98.7 F Pulse Rate Pulse Rate [ 78 Anterior Bilateral Throughout] Pulse Rate [ 78 Apical] Respiratory 20 Rate Respiratory 20 Rate [Anterior Bilateral Throughout] Blood Pressure 168/97 O2 Sat by Pulse Oximetry 12/02/18 12/02/18 12/02/18 08:20 08:54 10:50 Temperature Pulse Rate 85 Pulse Rate [ 82 Anterior Bilateral Throughout] Pulse Rate [ Apical] Respiratory Rate Respiratory 20 Rate [Anterior Bilateral Throughout] Blood Pressure O2 Sat by Pulse 97 Oximetry 12/02/18 12/02/18 12/02/18 13:07 13:26 13:36 Temperature Pulse Rate 89 Pulse Rate [ 96 H 94 H Anterior Bilateral Throughout] Pulse Rate [ Apical] Respiratory Rate Respiratory 18 18 Rate [Anterior Bilateral Throughout] Blood Pressure 150/78 O2 Sat by Pulse 93 Oximetry Constitutional: no acute distress, alert Eyes: non-icteric ENT: oropharynx moist Neck: supple, no JVD Ascultation: Bilateral: diminished breath sounds, other (Prolonged expiratory phase.) Cardiovascular: regular rate and rhythm Gastrointestinal: normoactive bowel sounds, soft, non-tender Integumentary: normal Extremities: no cyanosis, no edema Neurologic: non-focal exam, pupils equal and round, CN II-XII normal Psychiatric: anxious CBC and BMP: 12/02/18 06:01 12/02/18 06:01 ABG, PT/INR, D-dimer: ABG POC ABG pH 7.307 (7.35-7.45) L 11/30/18 04:53 POC ABG pCO2 45.9 (35-45) H 11/30/18 04:53 POC ABG pO2 82 (80-105) 11/30/18 04:53 POC ABG HCO3 22.9 (22-26 mml/L) 11/30/18 04:53 POC ABG Total CO2 24 (23-27mmol/L) 11/30/18 04:53 POC ABG O2 Sat 95 11/30/18 04:53 PT/INR, D-dimer D-Dimer 6160.06 ng/mlDDU (0-234) H 11/29/18 23:14 Abnormal lab findings: Abnormal Labs 11/29/18 11/29/18 11/29/18 23:14 23:14 23:14 WBC 0.8 L* RBC 3.61 L MCV 98 H Plt Count 78 L Seg Neuts % (Manual) 22.0 L Lymphocytes % (Manual) 68.0 H Monocytes % (Manual) 8.0 H Seg Neutrophils # Man 0.2 L Lymphocytes # (Manual) 0.5 L D-Dimer 6160.06 H POC ABG pH POC ABG pCO2 Sodium 133 L Potassium 3.5 L BUN 21 H Creatinine 1.4 H Glucose 144 H Lactic Acid Calcium NT-Pro-B Natriuret Pep Total Protein Albumin 11/29/18 11/30/18 11/30/18 23:14 01:08 04:37 WBC RBC MCV Plt Count Seg Neuts % (Manual) Lymphocytes % (Manual) Monocytes % (Manual) Seg Neutrophils # Man Lymphocytes # (Manual) D-Dimer POC ABG pH POC ABG pCO2 Sodium Potassium BUN Creatinine Glucose Lactic Acid 0.60 L 0.60 L Calcium NT-Pro-B Natriuret Pep 5555 H Total Protein Albumin 11/30/18 12/01/18 12/01/18 04:53 05:26 05:26 WBC 0.4 L* RBC MCV 98 H Plt Count 77 L Seg Neuts % (Manual) 76.0 H Lymphocytes % (Manual) Monocytes % (Manual) Seg Neutrophils # Man 0.3 L Lymphocytes # (Manual) 0.1 L D-Dimer POC ABG pH 7.307 L POC ABG pCO2 45.9 H Sodium Potassium BUN 33 H Creatinine 1.6 H Glucose 320 H Lactic Acid Calcium NT-Pro-B Natriuret Pep Total Protein Albumin 12/02/18 12/02/18 06:01 06:01 WBC 0.6 L* RBC 3.52 L MCV 98 H Plt Count 76 L Seg Neuts % (Manual) 84.0 H Lymphocytes % (Manual) 13.0 L Monocytes % (Manual) Seg Neutrophils # Man 0.5 L Lymphocytes # (Manual) 0.1 L D-Dimer POC ABG pH POC ABG pCO2 Sodium Potassium BUN 31 H Creatinine 1.4 H Glucose 292 H Lactic Acid Calcium 8.2 L NT-Pro-B Natriuret Pep Total Protein 6.2 L Albumin 3.1 L
--- NOTE | 2018-12-02 15:29 | Event Note ---
Date: 12/02/18 Came to see patient - signed out AMA.
[2018-12-03 16:52] LABS: HIV-1 RNA QN PCR 2.38 Log cps/mL
[2018-12-04 14:28] LABS: CD4/CD8 Ratio 0.84 (0.86-5.00)
== END 2018-12-02 14:40 | disposition left against medical advice (07) | DRG 193 ==
LOC: ED 22:45 → 4A 11-30 01:50
PROVIDERS: ADMIT Internal Medicine; ATTEND Internal Medicine
PROC: 4A033R1 Measurement of Arterial Saturation, Peripheral, Percutaneous Approach (ICD-10-PCS; principal; 2018-11-30)
PROC: 5A09357 Assistance with Respiratory Ventilation, Less than 24 Consecutive Hours, Continuous Positive Airway Pressure (ICD-10-PCS; 2018-11-30)
DX: J18.9 Pneumonia, unspecified organism (principal); N17.0 Acute kidney failure with tubular necrosis; J96.01 Acute respiratory failure with hypoxia; J96.02 Acute respiratory failure with hypercapnia; Z94.0 Kidney transplant status; J45.901 Unspecified asthma with (acute) exacerbation; I13.0 Hypertensive heart and chronic kidney disease with heart failure and stage 1 through stage 4 chronic kidney disease, or unspecified chronic kidney disease; D61.818 Other pancytopenia; D89.9 Disorder involving the immune mechanism, unspecified; Z21 Asymptomatic human immunodeficiency virus [HIV] infection status; I50.9 Heart failure, unspecified; N18.3 Chronic kidney disease, stage 3 (moderate); J45.909 Unspecified asthma, uncomplicated; Z82.49 Family history of ischemic heart disease and other diseases of the circulatory system; Z88.1 Allergy status to other antibiotic agents; Z79.899 Other long term (current) drug therapy; Z79.51 Long term (current) use of inhaled steroids; Z71.6 Tobacco abuse counseling
CPT/HCPCS: 36415; 71045; 71250; 78582; 80048; 80053; 80197; 81001; 82024; 82140; 82803; 83880; 84484; 85007; 85025; 85379; 87040; 87086; 87497; 87536; 90686; 90732; 93005; 93010; 94640; 94760; 96365; 96367; 96375; 99406; G0378; A9540; A9558; J0456; J0696; J1940; J2543; J2920; J2930; J3370; J7050; J7507; J7517